=== PATIENT | female | born 1980 | race Caucasian/White ===

== ENCOUNTER 2016-03-04 12:05 | Emergency (ER) | payer BC ==
[2016-03-04 12:20] VITALS: BP 112/65
[2016-03-04] MEDS ORDERED: Ibuprofen TAB* 600 MG PO ONE (12:46)
--- NOTE | 2016-03-04 12:47 | UC ---
Lower Extremity/Ankle HPI - HPI Summary HPI Summary: twisted left ankle on ice this morning--lateral tenderness swelling and bruising - History of Current Complaint Chief Complaint: UCLowerExtremity Stated Complaint: ANKLE INJURY Time Seen by Provider: 03/04/16 12:42 Hx Obtained From: Patient Hx Last Menstrual Period: 02/15/16 ?: No Onset/Duration: Sudden Onset, Lasting Hours - 1.5 hours ago, Still Present Severity Initially: Moderate Severity Currently: Moderate Pain Intensity: 7 Pain Scale Used: 0-10 Numeric Aggravating Factor(s): Standing, Ambulation Alleviating Factor(s): Rest, Elevation Able to Bear Weight: Yes - Allergies/Home Medications Allergies/Adverse Reactions: Allergies Allergy/AdvReac Type Severity Reaction Status Date / Time No Known Allergies Allergy Verified 12/30/13 14:22 Home Medications: Home Medications Cholecalciferol [Vitamin D-3] 2,000 unit PO DAILY 03/04/16 [History Confirmed ] PMH/Surg Hx/FS Hx/Imm Hx Previously Healthy: Yes Endocrine History Of: Denies: Diabetes, Thyroid Disease Cardiovascular History Of: Denies: Cardiac Disorders, Hypertension Respiratory History Of: Denies: COPD, Asthma GI/ History Of: Denies: Ulcer - Surgical History Surgical History: Yes Surgery Procedure, Year, and Place: csection X2, BTL - Family History Known Family History: Positive: None Family History: no cardiovascular issues in family lineage - Social History Occupation: Employed Full-time, Employed Part-time Lives: With Family Alcohol Use: Weekly Substance Use Type: None Smoking Status (MU): Light Every Day Tobacco Smoker - Immunization History Most Recent Influenza Vaccination: declined Most Recent Tetanus Shot: 10/12/13 Most Recent Pneumonia Vaccination: none Review of Systems Constitutional: Negative Skin: Bruising - lateral left ankle Eyes: Negative ENT: Negative Respiratory: Negative Cardiovascular: Negative Gastrointestinal: Negative Genitourinary: Negative Motor: Decreased ROM - left ankle, Weakness - left foot Neurovascular: Negative Musculoskeletal: Arthralgia, Edema - lateral left ankle Neurological: Negative Psychological: Negative All Other Systems Reviewed And Are Negative: Yes Physical Exam Triage Information Reviewed: Yes Appearance: Well-Appearing, No Pain Distress, Well-Nourished Vital Signs: Initial Vital Signs Temp 98.7 F 03/04/16 12:16 Pulse 79 01/12/17 12:16 Resp 16 03/04/16 12:16 BP 112/65 03/04/16 12:16 Pulse Ox 98 03/04/16 12:16 Vital Signs Reviewed: Yes Eye Exam: Normal Eyes: Positive: Conjunctiva Clear ENT Exam: Normal ENT: Positive: Normal ENT inspection, Hearing grossly normal, Pharynx normal. Negative: Nasal congestion, Nasal drainage, Tonsillar swelling, Tonsillar exudate, Trismus, Muffled/hoarse voice Dental Exam: Normal Neck exam: Normal Neck: Positive: Supple, Nontender, No Lymphadenopathy Respiratory Exam: Normal Respiratory: Positive: Chest non-tender, Lungs clear, Normal breath sounds, No respiratory distress, No accessory muscle use Cardiovascular Exam: Normal Cardiovascular: Positive: RRR, No Murmur, Pulses Normal, Brisk Capillary Refill Musculoskeletal Exam: Other Musculoskeletal: Positive: Strength Limited @ - left ankle, ROM Limited @ - left ankle, Edema @ - lateral left ankle Neurological Exam: Normal Psychological Exam: Normal Skin Exam: Normal Diagnostics - Radiology No standard instances Xray Interpretation: Positive (See Comments) - non displased fracture of distal fibula Lower Extremity Course/Dx - Course Course Of Treatment: david, cam, crutches, rice, ibuprofen, follow with ortho re- check 4-5 days - Differential Dx/Diagnosis Differential Diagnosis/HQI/PQRI: Cellulitis, Fracture (Closed), Fracture (Open) , Sprain, Strain Provider Diagnoses: non displaced fracture left fibula Discharge - Discharge Plan Condition: Stable Disposition: HOME Prescriptions: Ibuprofen TAB* [Motrin TAB* 600 MG] 600 mg PO Q6H PRN #30 tab PRN Reason: ankle pain Patient Education Materials: Ankle Fracture (ED), Crutch Instructions (ED), RICE Therapy (ED) Forms: *Work Release Referrals: Garry Mary MD [Medical Doctor] - 4 Days No Primary Care Phys,NOPCP [Primary Care Provider] -
--- NOTE | 2016-03-04 13:28 | RAD ---
Indication: Left ankle injury 3 views of the left ankle demonstrate soft tissue swelling laterally. There is suggestion of a nondisplaced fracture of the distal fibula. No significant displacement is noted. IMPRESSION: Likely nondisplaced fracture of the distal fibula.
== END 2016-03-04 14:15 | disposition home or self-care (01) ==
LOC: UCEAST 12:05
DX: S99.912A Unspecified injury of left ankle, initial encounter (principal); X50.1XXA Overexertion from prolonged static or awkward postures, initial encounter; Y93.9 Activity, unspecified; Y92.9 Unspecified place or not applicable; F17.210 Nicotine dependence, cigarettes, uncomplicated
CPT/HCPCS: 99213; A9270-GY; G0463

== ENCOUNTER 2016-05-21 17:32 | Emergency (ER) | payer BC ==
[2016-05-21] MEDS ORDERED: NS 0.9% 1000 ML* 2,000 ML IV ONE (17:52)
[2016-05-21] MEDS ORDERED: LORazepam INJ* 2 MG/ML 1 ML VIAL IV PUSH ONE (17:54)
--- NOTE | 2016-05-21 17:59 | ED ---
Psychiatric Complaint - HPI Summary HPI Summary: Patient presents to ED with alcohol intoxication and requesting a detox. Patient began drinking last evening and this morning starting at 9am until now. She states she had 6 beers and 2 glasses of wine. She normally drinks a few times a week and drink of choice is wine. She denies drinking previously in the week. She also would like to speak with someone for an MHE. She denies thoughts of hurting herself or others. Denies self-injurious behaviors. Denies drug use. Patient is a smoker. She has never been seen for something like this before and does not with to seek rehab help. She is tearful on examination. Denies injuries, falls, LOC. She takes Lexapro at night, but no other medications. No significant health history. - History Of Current Complaint Chief Complaint: EDDetoxRequest Time Seen by Provider: 05/21/16 17:45 Hx Obtained From: Patient Hx Last Menstrual Period: 02/15/16 Onset/Duration: Gradual Onset Timing: Constant Severity Initially: Moderate Severity Currently: Moderate Character: Depressed, Fearful Aggravating Factor(s): Recent Stress, Alcohol Use Alleviating Factor(s): Medication Associated Signs And Symptoms: Positive: Social Isolation - Risk Factor(s) Completed Suicide Risk Factors: White [place] - Allergies/Home Medications Allergies/Adverse Reactions: Allergies Allergy/AdvReac Type Severity Reaction Status Date / Time No Known Allergies Allergy Verified 12/30/13 14:22 PMH/Surg Hx/FS Hx/Imm Hx Previously Healthy: Yes Endocrine/Hematology History: Denies: Hx Diabetes, Hx Thyroid Disease Cardiovascular History: Denies: Hx Hypertension Respiratory History: Denies: Hx Asthma, Hx Chronic Obstructive Pulmonary Disease (COPD) GI History: Denies: Hx Ulcer - Surgical History Surgery Procedure, Year, and Place: csection X2, BTL Infectious Disease History: Denies: Hx Hepatitis, Hx Human Immunodeficiency Virus (HIV), Traveled Outside the [place] in Last 30 Days - Family History Known Family History: Positive: None Family History: no cardiovascular issues in family lineage - Social History Occupation: Employed Full-time Lives: With Family Alcohol Use: Weekly Hx Substance Use: No Substance Use Type: Reports: None Hx Tobacco Use: Yes Smoking Status (MU): Light Every Day Tobacco Smoker Review of Systems Constitutional: Negative ENT: Negative Cardiovascular: Negative Respiratory: Negative Gastrointestinal: Negative Positive: no symptoms reported, see HPI Musculoskeletal: Negative Neurological: Negative Positive: Anxious, Depressed All Other Systems Reviewed And Are Negative: Yes Physical Exam Triage Information Reviewed: Yes Vital Signs On Initial Exam: Initial Vitals Temp Pulse Resp BP Pulse Ox 97.4 F 94 16 123/80 99 05/21/16 17:34 05/21/16 17:34 05/21/16 17:34 05/21/16 17:34 05/21/16 17:34 Vital Signs Reviewed: Yes Appearance: Positive: No Pain Distress, Ill-Appearing Skin: Positive: Warm, Skin Color Reflects Adequate Perfusion Eyes: Positive: EOMI, Conjunctiva Inflammed Neck: Positive: Supple, No Lymphadenopathy Respiratory/Lung Sounds: Positive: Clear to Auscultation, Breath Sounds Present Cardiovascular: Positive: Normal Bowel Sounds: Positive: Present Musculoskeletal: Positive: Normal, Strength/ROM Intact Neurological: Positive: Normal, Sensory/Motor Intact, Alert, Oriented to Person Place, Time, Speech Normal Psychiatric: Positive: Normal - Lenin Coma Scale Best Eye Response: 4 - Spontaneous Best Motor Response: 6 - Obeys Commands Best Verbal Response: 5 - Oriented Diagnostics - Vital Signs Vital Signs Temp Pulse Resp BP Pulse Ox 05/21/16 17:34 97.4 F 94 16 123/80 99 - Laboratory Result Diagrams: 05/21/16 18:00 05/21/16 18:00 Lab Statement: Any lab studies that have been ordered have been reviewed, and results considered in the medical decision making process. Course/Dx - Course Course Of Treatment: Patient requesting to stay a few nights. Patient wishes to have a MHE. - Differential Dx/Clinical Impression Differential Diagnosis/HQI/PQRI: Positive: Alcohol Intoxication, Drug Overdose/ Intentional, Other - alcohol abuse, depression Provider Diagnosis: Alcohol intoxication Discharge - Discharge Plan Condition: Guarded Disposition: HOME Referrals: Fidencio Monreal NP [Primary Care Provider] -
[2016-05-21 18:25] LABS: Hematocrit 44 % (35-47); Hemoglobin 14.7 g/dl (12.0-16.0); Mean Corpuscular HGB Conc 33 g/dl (31-36); Mean Corpuscular Hemoglobin 33 pg (27-31); Mean Corpuscular Volume 99 fL (80-97); Mean Platelet Volume 7 um3 (7.4-10.4); Red Blood Count 4.44 10^6/ul (4.0-5.4); Red Cell Distribution Width 13 % (10.5-15); White Blood Count 6.7 10^3/ul (3.5-10.8)
[2016-05-21 18:29] LABS: Add Diff/Slide Review? Slide Review Added; Comments Flag Yes
[2016-05-21 18:34] LABS: Urine Bacteria 1+ (Absent); Urine Bilirubin Negative (Negative); Urine Glucose Negative (Negative); Urine Nitrite Negative (Negative)
[2016-05-21 18:37] LABS: Benzodiazepine Urine Screen None Detected (None Detect)
[2016-05-21 18:46] LABS: ALT 18 U/L (7-52); AST 22 U/L (13-39); Alkaline Phosphatase 52 U/L (34-104); Anion Gap 9 mmol/L (2-11); BUN/Creatinine Ratio 13.6 (8-20); Blood Urea Nitrogen 9 mg/dL (6-24); CO2 Carbon Dioxide 24 mmol/L (22-32); Calcium 9.5 mg/dL (8.6-10.3); Chloride 104 mmol/L (101-111); EGFR African American 129.6 (>60); EGFR Non-African American 100.8 (>60); Globulin 3.1 g/dL (2-4); Glucose 92 mg/dL (70-100); Potassium 4.1 mmol/L (3.5-5.0); Sodium 137 mmol/L (133-145); Total Protein 8.1 g/dL (6.4-8.9)
[2016-05-21 18:58] LABS: Acetaminophen < 15 mcg/mL; Alcohol 352 mg/dL (<10); Salicylate < 2.50 mg/dL (<30)
[2016-05-21 19:08] LABS: TSH (Thyroid Stimulating Horm) 0.71 mcIU/mL (0.34-5.60)
[2016-05-22 05:49] VITALS: BP 108/63
== END 2016-05-22 05:45 | disposition home or self-care (01) ==
LOC: ED 17:32
DX: F10.129 Alcohol abuse with intoxication, unspecified (principal); F32.9 Major depressive disorder, single episode, unspecified; F17.210 Nicotine dependence, cigarettes, uncomplicated
CPT/HCPCS: 36415; 80053; 80307; 80320; 80329; 81003; 81015; 84443; 85025; 87086; 96374; 99283; G0480; J2060

== ENCOUNTER → 2016-08-05 18:09 | Emergency (ER) | payer BC ==
[2016-08-05 18:20] VITALS: BP 101/76
== END | disposition left against medical advice (07) ==
LOC: ED 18:09
DX: F10.129 Alcohol abuse with intoxication, unspecified (principal)

== ENCOUNTER 2016-11-30 20:48 | Emergency (ER) | payer BC ==
[2016-11-30] MEDS ORDERED: Thiamine IV 100 MG, Folic Acid IV* 1 MG, Multiple Vitamin IV ADULT* 10 ML in NS 0.9% 10... IV ONE (21:59)
[2016-11-30 22:05] LABS: Urine Bilirubin Negative (Negative); Urine Glucose Negative (Negative); Urine Nitrite Negative (Negative)
[2016-11-30 22:22] LABS: Benzodiazepine Urine Screen None Detected (None Detect)
[2016-11-30] MEDS ORDERED: LORazepam INJ* 2 MG/ML 1 ML VIAL IV ONE (22:28)
[2016-11-30 23:04] LABS: Comments Flag Yes; Hematocrit 39 % (35-47); Hemoglobin 13.2 g/dl (12.0-16.0); Mean Corpuscular HGB Conc 34 g/dl (31-36); Mean Corpuscular Hemoglobin 32 pg (27-31); Mean Corpuscular Volume 94 fL (80-97); Mean Platelet Volume 8 um3 (7.4-10.4); Red Blood Count 4.14 10^6/ul (4.0-5.4); Red Cell Distribution Width 15 % (10.5-15); White Blood Count 8.1 10^3/ul (3.5-10.8)
[2016-11-30 23:05] LABS: Add Diff/Slide Review? Slide Review Added
[2016-11-30 23:15] LABS: Acetaminophen < 15 mcg/mL; Salicylate < 2.50 mg/dL (<30)
[2016-11-30 23:17] LABS: ALT 15 U/L (7-52); AST 17 U/L (13-39); Albumin 4.7 g/dL (3.2-5.2); Alkaline Phosphatase 37 U/L (34-104); Anion Gap 9 mmol/L (2-11); BUN/Creatinine Ratio 10.4 (8-20); Blood Urea Nitrogen 7 mg/dL (6-24); CO2 Carbon Dioxide 24 mmol/L (22-32); Calcium 9.1 mg/dL (8.6-10.3); Chloride 106 mmol/L (101-111); EGFR African American 127.4 (>60); Globulin 2.9 g/dL (2-4); Glucose 101 mg/dL (70-100); Potassium 3.8 mmol/L (3.5-5.0); Sodium 139 mmol/L (133-145); Total Protein 7.6 g/dL (6.4-8.9)
[2016-11-30 23:32] LABS: Neutrophil % 28 % (38-83); Reactive Lymph % 14 % (0-6)
[2016-11-30 23:33] LABS: RBC Morphology Normal (Normal)
[2016-11-30 23:54] LABS: Alcohol 425 mg/dL (<10)
--- NOTE | 2016-12-01 05:45 | ED ---
Otto Andrews Benjamin, scribed for Dwayne Waldron MD on 11/30/16 at 2144 . Psychiatric Complaint - HPI Summary HPI Summary: 36yo female presents to ED voluntarily looking for MHE and detox. Pt needs medical clearance to start detox. Pt is an alcoholic. Denies no other drug use. Also denies SI. Pt states she feels unsafe to leave the facility. Pt request MHE. Pt denies any Sz for her alcohol withdrawal. Last intake was around today around 1200. - History Of Current Complaint Chief Complaint: EDMentalHealth Time Seen by Provider: 11/30/16 21:28 Hx Obtained From: Patient Hx Last Menstrual Period: 02/15/16 ?: No Severity Initially: Mild Severity Currently: Mild Character: Frustrated Aggravating Factor(s): Alcohol Use Alleviating Factor(s): Nothing Associated Signs And Symptoms: Positive: Negative Related History: Positive For: Drug Abuse Counseling - for alcohol Has Suicidal: Denies: Thoughts, With A Plan Has Homicidal: Denies: Thoughts, With A Plan - Allergies/Home Medications Allergies/Adverse Reactions: Allergies Allergy/AdvReac Type Severity Reaction Status Date / Time No Known Allergies Allergy Verified 11/30/16 21:09 PMH/Surg Hx/FS Hx/Imm Hx Endocrine/Hematology History: Denies: Hx Diabetes, Hx Thyroid Disease Cardiovascular History: Denies: Hx Hypertension Respiratory History: Denies: Hx Asthma, Hx Chronic Obstructive Pulmonary Disease (COPD) GI History: Denies: Hx Ulcer Psychiatric History: Denies: Hx Eating Disorder, Hx of Violent Episodes Against Others - Surgical History Surgery Procedure, Year, and Place: csection X2, BTL Infectious Disease History: No Infectious Disease History: Denies: Hx Hepatitis, Hx Human Immunodeficiency Virus (HIV), Traveled Outside the [place] in Last 30 Days - Family History Known Family History: Positive: None Family History: no cardiovascular issues in family lineage - Social History Alcohol Use: Weekly Hx Substance Use: No Substance Use Type: Reports: None Hx Tobacco Use: Yes Smoking Status (MU): Light Every Day Tobacco Smoker Review of Systems Constitutional: Negative Eyes: Negative ENT: Negative Cardiovascular: Negative Respiratory: Negative Gastrointestinal: Negative Genitourinary: Negative Musculoskeletal: Negative Skin: Negative Neurological: Other - alcohol intoxicated Positive: Depressed, Other - frustrated All Other Systems Reviewed And Are Negative: Yes Physical Exam Triage Information Reviewed: Yes Vital Signs On Initial Exam: Initial Vitals Temp Pulse Resp BP Pulse Ox 98.5 F 90 16 112/73 97 11/30/16 21:00 11/30/16 21:00 11/30/16 21:00 11/30/16 21:00 11/30/16 21:00 Vital Signs Reviewed: Yes Appearance: Positive: Well-Appearing, No Pain Distress, Well-Nourished Skin: Positive: Warm, Skin Color Reflects Adequate Perfusion, Dry Head/Face: Positive: Normal Head/Face Inspection Eyes: Positive: EOMI, FLAQUITA ENT: Positive: Normal ENT inspection Neck: Positive: Supple, Nontender Respiratory/Lung Sounds: Positive: Clear to Auscultation, Breath Sounds Present Cardiovascular: Positive: RRR, Pulses are Symmetrical in both Upper and Lower Extremities Abdomen Description: Positive: Nontender, Soft Bowel Sounds: Positive: Present Musculoskeletal: Positive: Strength/ROM Intact Neurological: Positive: Sensory/Motor Intact, Alert, Oriented to Person Place, Time Psychiatric: Positive: Anxious, Other - tearful, hysterical Diagnostics - Vital Signs Vital Signs Temp Pulse Resp BP Pulse Ox 11/30/16 21:00 98.5 F 90 16 112/73 97 - Laboratory Lab Results: Lab Results 11/30/16 11/30/16 11/30/16 Range/Units 21:35 21:46 21:46 WBC 8.1 (3.5-10.8) 10^3/ul RBC 4.14 (4.0-5.4) 10^6/ul Hgb 13.2 (12.0-16.0) g/dl Hct 39 (35-47) % MCV 94 (80-97) fL MCH 32 H (27-31) pg MCHC 34 (31-36) g/dl RDW 15 (10.5-15) % Plt Count 305 (150-450) 10^3/ul MPV 8 (7.4-10.4) um3 Neut % (Auto) 32.7 L (38-83) % Lymph % (Auto) 60.8 H (25-47) % [place] % (Auto) 4.8 (1-9) % Eos % (Auto) 0.8 (0-6) % Baso % (Auto) 0.9 (0-2) % Absolute Neuts (auto) 2.6 (1.5-7.7) 10^3/ul Absolute Lymphs (auto) 4.9 H (1.0-4.8) 10^3/ul Absolute Monos (auto) 0.4 (0-0.8) 10^3/ul Absolute Eos (auto) 0.1 (0-0.6) 10^3/ul Absolute Basos (auto) 0.1 (0-0.2) 10^3/ul Absolute Nucleated RBC 0.01 10^3/ul Neutrophils % 28 L (38-83) % Lymphocytes % 56 H (25-47) % Reactive Lymphs % 14 H (0-6) % Monocytes % 2 (0-13) % Nucleated RBC % 0.1 Normal RBC Morphology Normal (Normal) Sodium (133-145) mmol/L Potassium (3.5-5.0) mmol/L Chloride (101-111) mmol/L Carbon Dioxide (22-32) mmol/L Anion Gap (2-11) mmol/L BUN (6-24) mg/dL Creatinine (0.51-0.95) mg/dL Est GFR ( Amer) (>60) Est GFR (Non-Af Amer) (>60) BUN/Creatinine Ratio (8-20) Glucose (70-100) mg/dL Calcium (8.6-10.3) mg/dL Magnesium (1.9-2.7) mg/dL Total Bilirubin (0.2-1.0) mg/dL AST (13-39) U/L ALT (7-52) U/L Alkaline Phosphatase (34-104) U/L Total Protein (6.4-8.9) g/dL Albumin (3.2-5.2) g/dL Globulin (2-4) g/dL Albumin/Globulin Ratio (1-3) TSH (0.34-5.60) mcIU/mL Beta HCG, Quant mIU/mL Urine Color Straw Urine Appearance Clear Urine pH 5.0 (5-9) Ur Specific Bronson 1.004 L (1.010-1.030) Urine Protein Negative (Negative) Urine Ketones Negative (Negative) Urine Blood Negative (Negative) Urine Nitrate Negative (Negative) Urine Bilirubin Negative (Negative) Urine Urobilinogen Negative (Negative) Ur Leukocyte Esterase Negative (Negative) Urine Glucose Negative (Negative) Salicylates (<30) mg/dL Urine Opiates Screen None detected (None Detect) Acetaminophen mcg/mL Ur Barbiturates Screen None detected (None Detect) Ur Phencyclidine Scrn None detected (None Detect) Ur Amphetamines Screen None detected (None Detect) U Benzodiazepines Scrn None detected (None Detect) Urine Cocaine Screen None detected (None Detect) U Cannabinoids Screen None detected (None Detect) Serum Alcohol (<10) mg/dL 11/30/16 Range/Units 22:03 WBC (3.5-10.8) 10^3/ul RBC (4.0-5.4) 10^6/ul Hgb (12.0-16.0) g/dl Hct (35-47) % MCV (80-97) fL MCH (27-31) pg MCHC (31-36) g/dl RDW (10.5-15) % Plt Count (150-450) 10^3/ul MPV (7.4-10.4) um3 Neut % (Auto) (38-83) % Lymph % (Auto) (25-47) % Lancaster % (Auto) (1-9) % Eos % (Auto) (0-6) % Baso % (Auto) (0-2) % Absolute Neuts (auto) (1.5-7.7) 10^3/ul Absolute Lymphs (auto) (1.0-4.8) 10^3/ul Absolute Monos (auto) (0-0.8) 10^3/ul Absolute Eos (auto) (0-0.6) 10^3/ul Absolute Basos (auto) (0-0.2) 10^3/ul Absolute Nucleated RBC 10^3/ul Neutrophils % (38-83) % Lymphocytes % (25-47) % Reactive Lymphs % (0-6) % Monocytes % (0-13) % Nucleated RBC % Normal RBC Morphology (Normal) Sodium 139 (133-145) mmol/L Potassium 3.8 (3.5-5.0) mmol/L Chloride 106 (101-111) mmol/L Carbon Dioxide 24 (22-32) mmol/L Anion Gap 9 (2-11) mmol/L BUN 7 (6-24) mg/dL Creatinine 0.67 (0.51-0.95) mg/dL Est GFR ( Amer) 127.4 (>60) Est GFR (Non-Af Amer) 99.0 (>60) BUN/Creatinine Ratio 10.4 (8-20) Glucose 101 H (70-100) mg/dL Calcium 9.1 (8.6-10.3) mg/dL Magnesium 2.0 (1.9-2.7) mg/dL Total Bilirubin 0.30 (0.2-1.0) mg/dL AST 17 (13-39) U/L ALT 15 (7-52) U/L Alkaline Phosphatase 37 (34-104) U/L Total Protein 7.6 (6.4-8.9) g/dL Albumin 4.7 (3.2-5.2) g/dL Globulin 2.9 (2-4) g/dL Albumin/Globulin Ratio 1.6 (1-3) TSH 1.00 (0.34-5.60) mcIU/mL Beta HCG, Quant < 0.60 mIU/mL Urine Color Urine Appearance Urine pH (5-9) Ur Specific Bronson (1.010-1.030) Urine Protein (Negative) Urine Ketones (Negative) Urine Blood (Negative) Urine Nitrate (Negative) Urine Bilirubin (Negative) Urine Urobilinogen (Negative) Ur Leukocyte Esterase (Negative) Urine Glucose (Negative) Salicylates < 2.50 (<30) mg/dL Urine Opiates Screen (None Detect) Acetaminophen < 15 mcg/mL Ur Barbiturates Screen (None Detect) Ur Phencyclidine Scrn (None Detect) Ur Amphetamines Screen (None Detect) U Benzodiazepines Scrn (None Detect) Urine Cocaine Screen (None Detect) U Cannabinoids Screen (None Detect) Serum Alcohol 425 H* (<10) mg/dL Result Diagrams: 11/30/16 21:35 11/30/16 22:03 Lab Statement: Any lab studies that have been ordered have been reviewed, and results considered in the medical decision making process. Course/Dx - Course Course Of Treatment: Reviewed pts medication and allergy lists. Blood pressure noted. Pt will be medically cleared after serum alcohol level drops to a safe level. - Differential Dx/Clinical Impression Provider Diagnosis: Alcohol intoxication Discharge - Discharge Plan Condition: Stable Disposition: OTHER Discharge Disposition Comment: . Referrals: Fidencio Monreal, [facility] [Primary Care Provider] - The documentation as recorded by the Otto kirkpatrick Benjamin accurately reflects the service I personally performed and the decisions made by me, Dwayne Waldron MD.
[2016-12-01 12:50] VITALS: BP 100/54
--- NOTE | 2016-12-01 19:04 | ED ---
Suman Andrews Angela, scribed for Ousmane Gee MD on 12/01/16 at 1220 . Progress - Progress Note Progress Note: This pt is a 36 y/o female who presented last night to [facility] voluntarily looking for MHE and detox." Her last alcohol intake was around 1200 yesterday. This pt was signed out from Dr. Waldron, pending disposition, awaiting alcohol metabolism. Pt will be discharged to home in stable condition with a diagnosis of alcohol intoxication. Course/Dx - Course Course Of Treatment: This pt is a 36 y/o female who presented last night to [facility] voluntarily looking for MHE and detox." Her last alcohol intake was around 1200 yesterday. This pt was signed out from Dr. Waldron to follow up with alcohol level. Repeat alcohol level was 181. The pt was observed in the ED and now is alert and oriented x3. The pt is eating and drinking without any nausea and vomiting. Therefore, she will be discharged home with follow up with PCP. Pt was given information for outpatient detox. - Diagnoses Provider Diagnoses: Alcohol intoxication The documentation as recorded by the Suman kirkpatrick Angela accurately reflects the service I personally performed and the decisions made by , Ousmane Gee MD.
== END 2016-12-01 12:48 | disposition home or self-care (01) ==
LOC: ED 20:48
DX: F10.129 Alcohol abuse with intoxication, unspecified (principal); F32.9 Major depressive disorder, single episode, unspecified; Y90.8 Blood alcohol level of 240 mg/100 ml or more; F17.210 Nicotine dependence, cigarettes, uncomplicated
CPT/HCPCS: 36415; 80053; 80307; 80320; 80329; 81003; 83735; 84443; 84702; 85025; 93005; 96374; 99284; G0480; J2060; J3411

== ENCOUNTER 2017-08-13 05:36 | Emergency (ER) | payer BC ==
[2017-08-13 07:26] LABS: ABS Basophils 0.1 10^3/ul (0-0.2); ABS Eosinophils 0.1 10^3/ul (0-0.6); ABS Lymphocytes 2.9 10^3/ul (1.0-4.8); ABS Monocytes 0.3 10^3/ul (0-0.8); ABS Nucleated RBC 0 10^3/ul; Eosinophil % 1.2 % (0-6); Hematocrit 40 % (35-47); Hemoglobin 13.7 g/dl (12.0-16.0); Mean Corpuscular HGB Conc 35 g/dl (31-36); Mean Corpuscular Hemoglobin 33 pg (27-31); Mean Corpuscular Volume 96 fL (80-97); Mean Platelet Volume 7.1 um3 (7.4-10.4); Nucleated Red Blood Cells % 0; Platelet Count 285 10^3/ul (150-450); Red Blood Count 4.12 10^6/ul (4.00-5.40); Red Cell Distribution Width 15 % (10.5-15); White Blood Count 7.3 10^3/ul (3.5-10.8)
[2017-08-13 07:47] LABS: EGFR Non-African American 83.9 (>60)
--- NOTE | 2017-08-13 17:51 | ED ---
Cyndie Andrews Jade, scribed for Dwayne Waldron MD on 08/13/17 at 0808 . Psychiatric Complaint - HPI Summary HPI Summary: Pt is a 37 y/o female who presents to the ED c/o depression. She states she has been having recent family problems that have been making her feel depressed and hopeless. Pt is currently intoxicated (alcohol) and wants a MHE. Pt has not been eating or sleeping well. She states she sometimes has suicidal thoughts, but no plan. Pts sister states that the pt is an alcohol, and recently has been drinking more. PMHx anxiety and alcohol abuse. - History Of Current Complaint Chief Complaint: EDMentalHealth Time Seen by Provider: 08/13/17 05:56 Hx Obtained From: Patient Hx Last Menstrual Period: 02/15/16 Onset/Duration: Gradual Onset, Still Present Timing: Constant Character: Depressed Aggravating Factor(s): Recent Stress - Family problems, Alcohol Use Alleviating Factor(s): Nothing Associated Signs And Symptoms: Positive: Sleep Disturbance, Appetite Change Related History: Positive For: Prior Psychiatric Issues Has Suicidal: Reports: Thoughts. Denies: With A Plan, Demonstrates Gesture Has Homicidal: Denies: Thoughts Ingestion History: Type/Name Of Drug - Alcohol - Allergies/Home Medications Allergies/Adverse Reactions: Allergies Allergy/AdvReac Type Severity Reaction Status Date / Time No Known Allergies Allergy Verified 11/30/16 21:09 PMH/Surg Hx/FS Hx/Imm Hx Endocrine/Hematology History: Denies: Hx Diabetes, Hx Thyroid Disease Cardiovascular History: Denies: Hx Hypertension Respiratory History: Denies: Hx Asthma, Hx Chronic Obstructive Pulmonary Disease (COPD) GI History: Denies: Hx Ulcer Psychiatric History: Reports: Hx Anxiety, Hx Substance Abuse - Alcohol Denies: Hx Eating Disorder, Hx of Violent Episodes Against Others - Surgical History Surgery Procedure, Year, and Place: csection X2, BTL Infectious Disease History: No Infectious Disease History: Denies: Hx Hepatitis, Hx Human Immunodeficiency Virus (HIV), Traveled Outside the [place] in Last 30 Days - Family History Known Family History: Negative: Cardiac Disease Family History: no cardiovascular issues in family lineage - Social History Alcohol Use: Weekly Hx Substance Use: No Substance Use Type: Reports: None Hx Tobacco Use: Yes Smoking Status (MU): Light Every Day Tobacco Smoker Review of Systems Negative: Fever Positive: Depressed All Other Systems Reviewed And Are Negative: Yes Physical Exam - Summary Physical Exam Summary: General: well-appearing, no pain distress Skin: warm, color reflects adequate perfusion, dry Head: normal Eyes: EOMI, FLAQUITA ENT: normal Neck: supple, nontender Respiratory: CTA, breath sounds present Cardiovascular: RRR Abdomen: soft, nontender Bowel: present Musculoskeletal: normal, strength/ROM intact Neurological: sensory/motor intact, A&O x3 Psychological: stuporous, but arousable to voice Triage Information Reviewed: Yes Vital Signs On Initial Exam: Initial Vitals Temp Pulse Resp BP Pulse Ox 99.8 F 87 17 109/80 98 08/13/17 05:59 08/13/17 05:59 08/13/17 05:59 08/13/17 05:59 08/13/17 05:59 Vital Signs Reviewed: Yes Diagnostics - Vital Signs Vital Signs Temp Pulse Resp BP Pulse Ox 08/13/17 05:59 99.8 F 87 17 109/80 98 - Laboratory Lab Results: Lab Results 08/13/17 08/13/17 08/13/17 Range/Units 07:16 07:16 07:17 WBC 7.3 (3.5-10.8) 10^3/ul RBC 4.12 (4.00-5.40) 10^6/ul Hgb 13.7 (12.0-16.0) g/dl Hct 40 (35-47) % MCV 96 (80-97) fL MCH 33 H (27-31) pg MCHC 35 (31-36) g/dl RDW 15 (10.5-15) % Plt Count 285 (150-450) 10^3/ul MPV 7.1 L (7.4-10.4) um3 Neut % (Auto) 54.4 (38-83) % Lymph % (Auto) 39.0 (25-47) % Grady % (Auto) 4.6 (0-7) % Eos % (Auto) 1.2 (0-6) % Baso % (Auto) 0.8 (0-2) % Absolute Neuts (auto) 4.0 (1.5-7.7) 10^3/ul Absolute Lymphs (auto) 2.9 (1.0-4.8) 10^3/ul Absolute Monos (auto) 0.3 (0-0.8) 10^3/ul Absolute Eos (auto) 0.1 (0-0.6) 10^3/ul Absolute Basos (auto) 0.1 (0-0.2) 10^3/ul Absolute Nucleated RBC 0 10^3/ul Nucleated RBC % 0 Sodium 144 (135-145) mmol/L Potassium 3.4 L (3.5-5.0) mmol/L Chloride 110 (101-111) mmol/L Carbon Dioxide 25 (22-32) mmol/L Anion Gap 9 (2-11) mmol/L BUN 10 (6-24) mg/dL Creatinine 0.77 (0.51-0.95) mg/dL Est GFR ( Amer) 101.5 (>60) Est GFR (Non-Af Amer) 83.9 (>60) BUN/Creatinine Ratio 13.0 (8-20) Glucose 107 H (70-100) mg/dL Calcium 8.9 (8.6-10.3) mg/dL Total Bilirubin 0.30 (0.2-1.0) mg/dL AST 18 (13-39) U/L ALT 13 (7-52) U/L Alkaline Phosphatase 50 (34-104) U/L Total Protein 7.0 (6.4-8.9) g/dL Albumin 4.5 (3.2-5.2) g/dL Globulin 2.5 (2-4) g/dL Albumin/Globulin Ratio 1.8 (1-3) TSH Pending Beta HCG, Quant < 0.60 mIU/mL Salicylates Pending Urine Opiates Screen None detected (None Detect) Acetaminophen Pending Ur Barbiturates Screen None detected (None Detect) Ur Phencyclidine Scrn None detected (None Detect) Ur Amphetamines Screen None detected (None Detect) U Benzodiazepines Scrn None detected (None Detect) Urine Cocaine Screen None detected (None Detect) U Cannabinoids Screen None detected (None Detect) Serum Alcohol Pending Result Diagrams: 08/13/17 07:16 08/13/17 07:16 Lab Statement: Any lab studies that have been ordered have been reviewed, and results considered in the medical decision making process. Course/Dx - Course Course Of Treatment: DISCHARGE HOME STABLE AFTER MHE - Differential Dx/Clinical Impression Provider Diagnosis: Mental health problem, Acute alcohol intoxication Discharge - Sign-Out/Discharge Documenting (check all that apply): Discharge/Admit/Transfer - Discharge - Discharge Plan Condition: Stable Disposition: HOME Patient Education Materials: Depression (ED), Depression (DC), Alcohol Intoxication (ED), Abuse of Alcohol (ED), Abuse of Alcohol (DC) Referrals: Fidencio Monreal NP [Primary Care Provider] - - Billing Disposition and Condition Condition: STABLE Disposition: Home The documentation as recorded by the Cyndie kirkpatrick Jade accurately reflects the service I personally performed and the decisions made by , Dwayne Waldron MD.
[2017-08-13] MEDS ORDERED: Acetaminophen TAB* 325 MG PO ONE (17:58)
[2017-08-13 18:00] VITALS: BP 112/82
== END 2017-08-13 17:56 | disposition home or self-care (01) ==
LOC: ED 05:36
DX: F32.9 Major depressive disorder, single episode, unspecified (principal); F10.129 Alcohol abuse with intoxication, unspecified; F17.200 Nicotine dependence, unspecified, uncomplicated
CPT/HCPCS: 36415; 80053; 80307; 80320; 80329; 84443; 84702; 85025; 99284; A9270-GY; G0480

== ENCOUNTER 2017-10-19 12:13 | Emergency (ER) | payer BC ==
--- OUTSIDE RECORDS SUMMARY | 2017-10-19 12:29 | XMS REPORT ---
:1980 External Reference #:[id number] Author Organization [facility] Address [address] [place] [address] [place] [address] Phone [phone] Care Team Providers Name Role Phone Yulissa Weber MD Primary Care Physician Unavailable Payers Type Date Identification Numbers Payment Provider Subscriber Commercial Policy Number: [id number] [employer] Conrad Bonner PayID: [id number] [address] [address] [place] [address] Problems Date Description Provider Status Onset: 02/17/2016 Anxiety state Fidencio Monreal NP Active Onset: 02/29/2016 Impaired fasting glycaemia Fidencio Monreal NP Active Onset: 08/06/2016 Alcohol abuse Fidencio Monreal NP Active Family History Date Family Member(s) Problem(s) Comments General Lupus General Cancer Social History Type Date Description Comments Marital Status Lives 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 ETOH Use Denies alcohol use Former heavy drinker. [place] counseling. Trial of Naltrexone 08/07. Smoking Patient is a current smoker, 10 or fewer cigarettes a smokes every day day Recreational Drug Use Denies Drug Use Daily Caffeine Consumes on average 2 cups of regular coffee per day Exercise Type/Frequency Walks 4 times a week 6 miles Allergies, Adverse Reactions, Alerts Date Description Reaction Status Severity Comments 02/11/2016 NKDA active Medications Medication Date Status Form Strength Qnty SIG Indications Ordering Provider Buspirone HCL 10/17 Active Tablets 5mg 60tab 1 by mouth Fidencio s twice a day BRI Monreal Naltrexone HCL 10/17 Active Tablets 50mg 30tab 1 by mouth Fidencio s AT Bedtime BRI Monreal Trazodone HCL 10/17 Active Tablets 100mg 30tab take 1 Fidencio s tablet by BRI Monreal mouth at bedtime Fluticasone 10/17 Hx Suspension 50mcg/Act 16uni 2 sprays J06.9 Fidencio ts each nostril BRI Monreal - qd. 10/21 Escitalopram 07/30 Active Tablets 20mg 30tab take 1 Fidencio Oxalate s tablet by BRI Monreal mouth every day Folic Acid Active Tablets 1mg 1 by mouth Unknown /0000 every day B-12 ER Active Tablets 1000mcg 1 by mouth Unknown /0000 Dispers every day Metamucil Active Powder 58.6% 1 tbs by Unknown Smooth Texture /0000 mouth once a day Multi For Her Active Tablets once a day Unknown /0000 Thiamine HCL Active Tablets 100mg 1 by mouth Unknown /0000 every day Vistaril Active Capsules 50mg take one Unknown /0000 capsule by mouth AT Bedtime If Needed For Sleep Augmentin 07/25 Hx Tablets 875-125mg 20tab 1 tablet by Majo01.90 s mouth q12 BRI Monreal - hours for 10 Benzonatate 07/25 Hx Capsules 100mg 30cap take one or J01.90 s two capsules BRI Monreal - every 8 10/16 hours needed for cough. Augmentin 03/16 Hx Tablets 875-125mg 14tab one by mouth J01.90 Meghan /2018 s twice a day Braun, - [employer] 07/25 Guaifenesin ac 03/16 Hx Syrup 100-10mg/ 180ml 5-10 J01.90 Meghan /2018 5ML milliliters Braun, - by mouth [employer] 07/25 every hours as needed cough, use at night Antabuse 11/09 Hx Tablets 500mg 30tab one tablet F10.20 Fidencio s once daily BRI Monreal - 03/16 Naltrexone HCL 08/06 Hx Tablets 50mg 30tab One tablet F10.20 Fidencio s once daily BRI Monreal - 10/26 Escitalopram 06/17 Hx Tablets 20mg 30tab 1 by mouth F41.9 Fidencio Oxalate s every day Jocelin, [employer] - 07/25 Naproxen 03/08 Hx Tablets 500mg 90tab 1 po bid prn S82.65xA Taye s pain F MD German Escitalopram 02/10 Hx Tablets 10mg 60tab 1 1/ F41.9 Fidencio Oxalate s tablets Jocelin, [employer] - daily. June 24 increase 2 tablets after one week Hydroxyzine 02/10 Hx Capsules 25mg 60cap 1-2 caps by F41.9 Fidencio Pamoate s mouth four Jocelin, [employer] times a day as needed for anxiety Metronidazole Hx Gel 1% apply to Unknown /0000 affected - area twice 08/06 Vitamin D High Hx Capsules 1000Unit 2 by mouth Unknown Potency /0000 every day Melatonin Hx Capsules 3mg 2-3 tab by Unknown /0000 mouth every - night at 10/16 bed Lexapro Hx Tablets 20mg 1 by mouth Unknown /0000 every day - 10/17 Nicotine Hx Patches 21mg/24HR 1 topical Unknown Transdermal /0000 24HR every day System Step 1 - for 6 wks 10/17 Immunizations CPT Code Status Date Vaccine Reaction Lot # [id number] Given 03/10/2016 Influenza Virus Vaccine, no immedite reactin [id number] Quadrivalent, Split Virus, noted ... hh Im Use Vital Signs Date Vital Result Comment 10/17/2017 Height 62.5 inches 5'2.50" Weight 119.00 lb Heart Rate 87 /min BP Systolic Sitting 105 mmHg BP Diastolic Sitting 80 mmHg Body Temperature 98.3 F O2 % BldC Oximetry 97 % BMI (Body Mass Index) 21.4 kg/m2 07/25/2017 Height 62.5 inches 5'2.50" Weight 117.50 lb Heart Rate 70 /min BP Systolic 109 mmHg BP Diastolic 67 mmHg Body Temperature 96.7 F O2 % BldC Oximetry 98 % BMI (Body Mass Index) 21.1 kg/m2 03/16/2017 Weight 120.50 lb Heart Rate 69 /min BP Systolic Sitting 118 mmHg BP Diastolic Sitting 68 mmHg Body Temperature 96.1 F O2 % BldC Oximetry 97 % 11/15/2016 Weight 113.75 lb Heart Rate 71 /min BP Systolic 110 mmHg BP Diastolic 60 mmHg Body Temperature 97.8 F O2 % BldC Oximetry 98 % 10/27/2016 Height 62.5 inches 5'2.50" Weight 111.25 lb Heart Rate 68 /min BP Systolic Sitting 120 mmHg BP Diastolic Sitting 85 mmHg Body Temperature 98.1 F BMI (Body Mass Index) 20.0 kg/m2 08/06/2016 Weight 114.00 lb Heart Rate 68 /min BP Systolic Sitting 108 mmHg BP Diastolic Sitting 66 mmHg O2 % BldC Oximetry 98 % 06/29/2016 Height 62.5 inches 5'2.50" Weight 114.00 lb Heart Rate 62 /min BP Systolic 104 mmHg BP Diastolic 62 mmHg Respiratory Rate 16 /min BMI (Body Mass Index) 20.5 kg/m2 06/22/2016 Weight 112.25 lb Heart Rate 68 /min BP Systolic Sitting 100 mmHg BP Diastolic Sitting 70 mmHg Respiratory Rate 14 /min 05/24/2016 Height 63 inches 5'3" Weight 115.00 lb Heart Rate 67 /min Respiratory Rate 16 /min Body Temperature 97.6 F Pain Level 4 BMI (Body Mass Index) 20.4 kg/m2 03/23/2016 Height 63 inches 5'3" Weight 115.00 lb Pain Level 5 BMI (Body Mass Index) 20.4 kg/m2 03/10/2016 Weight 115.00 lb with shoes Heart Rate 88 /min BP Systolic Sitting 130 mmHg BP Diastolic Sitting 86 mmHg O2 % BldC Oximetry 99 % 03/08/2016 Height 62.5 inches 5'2.50" Weight 109.00 lb Heart Rate 80 /min BP Systolic 120 mmHg BP Diastolic 78 mmHg Pain Level 6 BMI (Body Mass Index) 19.6 kg/m2 02/11/2016 Height 62 inches 5'2" Weight 111.00 lb Heart Rate 94 /min BP Systolic 106 mmHg BP Diastolic 70 mmHg Body Temperature 98.5 F O2 % BldC Oximetry 99 % BMI (Body Mass Index) 20.3 kg/m2 Results Test Date Test Result H/L Range Note CBC Auto Diff 08/13/2017 White Blood Count 7.3 10^3/uL 3.5-10.8 Red Blood Count 4.12 10^6/uL 4.00-5.40 Hemoglobin 13.7 g/dL 12.0-16.0 Hematocrit 40 % 35-47 Mean Corpuscular Volume 96 fL 80-97 Mean Corpuscular Hemoglobin 33 pg High 27-31 Mean Corpuscular HGB Conc 35 g/dL 31-36 Red Cell Distribution Width 15 % 10.5-15 Platelet Count 285 10^3/uL 150-450 Mean Platelet Volume 7.1 um3 Low 7.4-10.4 Abs Neutrophils 4.0 10^3/uL 1.5-7.7 Abs Lymphocytes 2.9 10^3/uL 1.0-4.8 Abs Monocytes 0.3 10^3/uL 0-0.8 Abs Eosinophils 0.1 10^3/uL 0-0.6 Abs Basophils 0.1 10^3/uL 0-0.2 Abs Nucleated RBC 0 10^3/uL Granulocyte % 54.4 % 38-83 Lymphocyte % 39.0 % 25-47 Monocyte % 4.6 % 0-7 Eosinophil % 1.2 % 0-6 Basophil % 0.8 % 0-2 Nucleated Red Blood Cells % 0 Urine Drug SCR ED & 08/13/2017 Amphetamine Ur Screen None Detected None Detect Pain Clinic Barbiturates Urine Screen None Detected None Detect Benzodiazepine Urine Screen None Detected None Detect Urine Cannabinoids Screen None Detected None Detect Urine Cocaine Screen None Detected None Detect Urine Opiates Screen None Detected None Detect Urine Phencyclidine Screen None Detected None Detect 1 Comp Metabolic Panel 08/13/2017 Sodium 144 mmol/L 135-145 Potassium 3.4 mmol/L Low 3.5-5.0 Chloride 110 mmol/L 101-111 Co2 Carbon Dioxide 25 mmol/L 22-32 Anion Gap 9 mmol/L 2-11 Glucose 107 mg/dL High 70-100 Blood Urea Nitrogen 10 mg/dL 6-24 Creatinine 0.77 mg/dL 0.51-0.95 BUN/Creatinine Ratio 13.0 8-20 Calcium 8.9 mg/dL 8.6-10.3 Total Protein 7.0 g/dL 6.4-8.9 Albumin 4.5 g/dL 3.2-5.2 Globulin 2.5 g/dL 2-4 Albumin/Globulin Ratio 1.8 1-3 Total Bilirubin 0.30 mg/dL 0.2-1.0 Alkaline Phosphatase 50 U/L 34-104 Alt 13 U/L 7-52 Ast 18 U/L 13-39 Egfr Non- 83.9 >60 Egfr 101.5 >60 2 Laboratory test finding 08/13/2017 HCG < 0.60 mIU/mL 3 Acetaminophen < 15 g/mL 4 Alcohol 314 mg/dL High <10 Salicylate < 2.50 mg/dL <30 TSH (Thyroid Stim Horm) 1.19 mcIU/mL 0.34-5.60 Liver Function Panel 12/27/2016 Total Protein 7.0 g/dL 6.4-8.9 Albumin 4.4 g/dL 3.2-5.2 Globulin 2.6 g/dL 2-4 Albumin/Globulin Ratio 1.7 1-3 Total Bilirubin 0.30 mg/dL 0.2-1.0 Direct Bilirubin 0.10 mg/dL 0.03-0.18 Indirect Bilirubin 0.2 mg/dL Low 0.3-1.0 Alkaline Phosphatase 44 U/L 34-104 Alt 15 U/L 7-52 Ast 15 U/L 13-39 Laboratory test finding 12/01/2016 Alcohol 181 mg/dL High <10 Laboratory test finding 11/30/2016 Magnesium 2.0 mg/dL 1.9-2.7 Urinalysis Profile 11/30/2016 Urine Color Straw Urine Appearance Clear Urine Specific [place] 1.004 Low 1.010-1.030 Urine pH 5.0 5-9 Urine Urobilinogen Negative Negative Urine Ketones Negative Negative Urine Protein Negative Negative Urine Leukocytes Negative Negative Urine Blood Negative Negative Urine Nitrite Negative Negative Urine Bilirubin Negative Negative Urine Glucose Negative Negative Urine Drug SCR ED & 11/30/2016 Amphetamine Ur Screen None Detected None Detect Pain Clinic Barbiturates Urine Screen None Detected None Detect Benzodiazepine Urine Screen None Detected None Detect Urine Cannabinoids Screen None Detected None Detect Urine Cocaine Screen None Detected None Detect Urine Opiates Screen None Detected None Detect Urine Phencyclidine Screen None Detected None Detect 5 CBC Auto Diff 11/30/2016 White Blood Count 8.1 10^3/uL 3.5-10.8 Red Blood Count 4.14 10^6/uL 4.0-5.4 Hemoglobin 13.2 g/dL 12.0-16.0 Hematocrit 39 % 35-47 Mean Corpuscular Volume 94 fL 80-97 Mean Corpuscular Hemoglobin 32 pg High 27-31 Mean Corpuscular HGB Conc 34 g/dL 31-36 Red Cell Distribution Width 15 % 10.5-15 Platelet Count 305 10^3/uL 150-450 Mean Platelet Volume 8 um3 7.4-10.4 Abs Neutrophils 2.6 10^3/uL 1.5-7.7 Abs Lymphocytes 4.9 10^3/uL High 1.0-4.8 Abs Monocytes 0.4 10^3/uL 0-0.8 Abs Eosinophils 0.1 10^3/uL 0-0.6 Abs Basophils 0.1 10^3/uL 0-0.2 Abs Nucleated RBC 0.01 10^3/uL Granulocyte % 32.7 % Low 38-83 Lymphocyte % 60.8 % High 25-47 Monocyte % 4.8 % 1-9 Eosinophil % 0.8 % 0-6 Basophil % 0.9 % 0-2 Nucleated Red Blood Cells % 0.1 Laboratory test finding 11/30/2016 Magnesium 2.0 mg/dL 1.9-2.7 Acetaminophen < 15 g/mL 6 Salicylate < 2.50 mg/dL <30 Comp Metabolic Panel 11/30/2016 Sodium 139 mmol/L 133-145 Potassium 3.8 mmol/L 3.5-5.0 Chloride 106 mmol/L 101-111 Co2 Carbon Dioxide 24 mmol/L 22-32 Anion Gap 9 mmol/L 2-11 Glucose 101 mg/dL High 70-100 Blood Urea Nitrogen 7 mg/dL 6-24 Creatinine 0.67 mg/dL 0.51-0.95 BUN/Creatinine Ratio 10.4 8-20 Calcium 9.1 mg/dL 8.6-10.3 Total Protein 7.6 g/dL 6.4-8.9 Albumin 4.7 g/dL 3.2-5.2 Globulin 2.9 g/dL 2-4 Albumin/Globulin Ratio 1.6 1-3 Total Bilirubin 0.30 mg/dL 0.2-1.0 Alkaline Phosphatase 37 U/L 34-104 Alt 15 U/L 7-52 Ast 17 U/L 13-39 Egfr Non- 99.0 >60 Egfr 127.4 >60 7 Laboratory test finding 11/30/2016 Alcohol 425 mg/dL High <10 8 HCG < 0.60 mIU/mL 9 TSH (Thyroid Stim Horm) 1.00 mcIU/mL 0.34-5.60 CBC Auto Diff 11/08/2016 White Blood Count 5.2 10^3/uL 3.5-10.8 Red Blood Count 3.82 10^6/uL Low 4.0-5.4 Hemoglobin 12.2 g/dL 12.0-16.0 Hematocrit 36 % 35-47 Mean Corpuscular Volume 95 fL 80-97 Mean Corpuscular Hemoglobin 32 pg High 27-31 Mean Corpuscular HGB Conc 34 g/dL 31-36 Red Cell Distribution Width 15 % 10.5-15 Platelet Count 253 10^3/uL 150-450 Mean Platelet Volume 8 um3 7.4-10.4 Abs Neutrophils 3.2 10^3/uL 1.5-7.7 Abs Lymphocytes 1.6 10^3/uL 1.0-4.8 Abs Monocytes 0.3 10^3/uL 0-0.8 Abs Eosinophils 0 10^3/uL 0-0.6 Abs Basophils 0 10^3/uL 0-0.2 Abs Nucleated RBC 0 10^3/uL Granulocyte % 62.1 % 38-83 Lymphocyte % 30.3 % 25-47 Monocyte % 6.1 % 1-9 Eosinophil % 0.6 % 0-6 Basophil % 0.9 % 0-2 Nucleated Red Blood Cells % 0 Comp Metabolic Panel 11/08/2016 Sodium 137 mmol/L 133-145 Potassium 4.3 mmol/L 3.5-5.0 Chloride 103 mmol/L 101-111 Co2 Carbon Dioxide 28 mmol/L 22-32 Anion Gap 6 mmol/L 2-11 Glucose 96 mg/dL 70-100 Blood Urea Nitrogen 13 mg/dL 6-24 Creatinine 0.59 mg/dL 0.51-0.95 BUN/Creatinine Ratio 22.0 High 8-20 Calcium 9.3 mg/dL 8.6-10.3 Total Protein 6.8 g/dL 6.4-8.9 Albumin 4.4 g/dL 3.2-5.2 Globulin 2.4 g/dL 2-4 Albumin/Globulin Ratio 1.8 1-3 Alkaline Phosphatase 40 U/L 34-104 Alt 18 U/L 7-52 Ast 19 U/L 13-39 Egfr Non- 114.7 >60 Egfr 147.5 >60 10 Total Bilirubin 0.30 mg/dL 0.2-1.0 Urinalysis Profile 05/21/2016 Urine Color Straw Urine Appearance Clear Urine Specific [place] 1.006 Low 1.010-1.030 Urine pH 5.0 5-9 Urine Urobilinogen Negative Negative Urine Ketones Negative Negative Urine Protein Negative Negative Urine Leukocytes Negative Negative Urine Blood 1+ Negative Urine Nitrite Negative Negative Urine Bilirubin Negative Negative Urine Glucose Negative Negative Urine White Blood Cell Trace(0-5/hpf) Absent Urine Red Blood Cell Trace(0-2/hpf) Absent Urine Bacteria 1+ Absent Urine Squamous Epithelial Cell Present Absent Urine Uric Acid Crystals Present Absent CBC Auto Diff 05/21/2016 White Blood Count 6.7 10^3/uL 3.5-10.8 Red Blood Count 4.44 10^6/uL 4.0-5.4 Hemoglobin 14.7 g/dL 12.0-16.0 Hematocrit 44 % 35-47 Mean Corpuscular Volume 99 fL High 80-97 Mean Corpuscular Hemoglobin 33 pg High 27-31 Mean Corpuscular HGB Conc 33 g/dL 31-36 Red Cell Distribution Width 13 % 10.5-15 Platelet Count 261 10^3/uL 150-450 Mean Platelet Volume 7 um3 Low 7.4-10.4 Abs Neutrophils 2.6 10^3/uL 1.5-7.7 Abs Lymphocytes 3.5 10^3/uL 1.0-4.8 Abs Monocytes 0.4 10^3/uL 0-0.8 Abs Eosinophils 0.1 10^3/uL 0-0.6 Abs Basophils 0.1 10^3/uL 0-0.2 Abs Nucleated RBC 0 10^3/uL Granulocyte % 38.8 % 38-83 Lymphocyte % 52.7 % High 25-47 Monocyte % 5.8 % 1-9 Eosinophil % 1.3 % 0-6 Basophil % 1.4 % 0-2 Nucleated Red Blood Cells % 0 Urine Drug SCR ED & 05/21/2016 Amphetamine Ur Screen None Detected None Detect Pain Clinic Barbiturates Urine Screen None Detected None Detect Benzodiazepine Urine Screen None Detected None Detect Urine Cannabinoids Screen None Detected None Detect Urine Cocaine Screen None Detected None Detect Urine Opiates Screen None Detected None Detect Urine Phencyclidine Screen None Detected None Detect 11 Comp Metabolic Panel 05/21/2016 Sodium 137 mmol/L 133-145 Potassium 4.1 mmol/L 3.5-5.0 Chloride 104 mmol/L 101-111 Co2 Carbon Dioxide 24 mmol/L 22-32 Anion Gap 9 mmol/L 2-11 Glucose 92 mg/dL 70-100 Blood Urea Nitrogen 9 mg/dL 6-24 Creatinine 0.66 mg/dL 0.51-0.95 BUN/Creatinine Ratio 13.6 8-20 Calcium 9.5 mg/dL 8.6-10.3 Total Protein 8.1 g/dL 6.4-8.9 Albumin 5.0 g/dL 3.2-5.2 Globulin 3.1 g/dL 2-4 Albumin/Globulin Ratio 1.6 1-3 Total Bilirubin 0.20 mg/dL 0.2-1.0 Alkaline Phosphatase 52 U/L 34-104 Alt 18 U/L 7-52 Ast 22 U/L 13-39 Egfr Non- 100.8 >60 Egfr 129.6 >60 12 Laboratory test finding 05/21/2016 Acetaminophen < 15 g/mL 13 Alcohol 352 mg/dL High <10 Salicylate < 2.50 mg/dL <30 TSH (Thyroid Stim Horm) 0.71 mcIU/mL 0.34-5.60 Urine Culture And 05/21/2016 Urine Culture SEE RESULT BELOW 14 Sensitivities CBC Auto Diff 02/25/2016 White Blood Count 6.3 10^3/uL 3.5-10.8 Red Blood Count 4.07 10^6/uL 4.0-5.4 Hemoglobin 13.9 g/dL 12.0-16.0 Hematocrit 41 % 35-47 Mean Corpuscular Volume 101 fL High 80-97 Mean Corpuscular Hemoglobin 34 pg High 27-31 Mean Corpuscular HGB Conc 34 g/dL 31-36 Red Cell Distribution Width 13 % 10.5-15 Platelet Count 226 10^3/uL 150-450 Mean Platelet Volume 8 um3 7.4-10.4 Abs Neutrophils 4.4 10^3/uL 1.5-7.7 Abs Lymphocytes 1.5 10^3/uL 1.0-4.8 Abs Monocytes 0.4 10^3/uL 0-0.8 Abs Eosinophils 0.1 10^3/uL 0-0.6 Abs Basophils 0.1 10^3/uL 0-0.2 Abs Nucleated RBC 0 10^3/uL Granulocyte % 68.8 % 38-83 Lymphocyte % 23.2 % Low 25-47 Monocyte % 6.1 % 1-9 Eosinophil % 1.1 % 0-6 Basophil % 0.8 % 0-2 Nucleated Red Blood Cells % 0 Comp Metabolic Panel 02/25/2016 Sodium 136 mmol/L 133-145 Potassium 3.8 mmol/L 3.5-5.0 Chloride 102 mmol/L 101-111 Co2 Carbon Dioxide 26 mmol/L 22-32 Anion Gap 8 mmol/L 2-11 Glucose 114 mg/dL High 70-100 Blood Urea Nitrogen 11 mg/dL 6-24 Creatinine 0.63 mg/dL 0.51-0.95 BUN/Creatinine Ratio 17.5 8-20 Calcium 9.0 mg/dL 8.6-10.3 Total Protein 7.0 g/dL 6.4-8.9 Albumin 4.3 g/dL 3.2-5.2 Globulin 2.7 g/dL 2-4 Albumin/Globulin Ratio 1.6 1-3 Total Bilirubin 0.50 mg/dL 0.2-1.0 Alkaline Phosphatase 57 U/L 34-104 Alt 17 U/L 7-52 Ast 24 U/L 13-39 Egfr Non- 106.9 >60 Egfr 137.5 >60 15 Laboratory test finding 02/25/2016 TSH (Thyroid Stim 2.01 mcIU/mL 0.34- 5.60 16 Horm) Vitamin D Total 25(Oh) 26.3 ng/mL Low 30-50 17 Lipid Profile (Trig/Chol/HDL) 02/25/2016 Triglycerides 125 mg/dL 18 Cholesterol 193 mg/dL 19 HDL Cholesterol 102.3 mg/dL 20 LDL Cholesterol 66 mg/dL 21 1 The urine specimen was tested at the listed cutoffs: Drug class test level (ng/mL) Amphetamines 500 Barbiturates 200 Benzodiazepine metabolites 200 Cocaine metabolites 150 Cannabinoids 50 Opiates 300 Pcp 25 Specimen was received without chain of custody. Results should be used for medical purposes only. 2 Because ethnic data is not always readily available, this report includes an eGFR for both -Americans and non- Americans. The National Kidney Disease Education Program (NKDEP) does not endorse the use of the MDRD equation for patients that are not between the ages of 18 and 70, are , have extremes of body size, muscle mass, or nutritional status, or are non- or non-. According to the National Kidney Foundation, irrespective of diagnosis, the stage of the disease is based on the level of kidney function: Stage Description GFR(mL/min/1.73 m(2)) 1 Kidney damage with normal or decreased GFR 90 2 Kidney damage with mild decrease in GFR 60-89 3 Moderate decrease in GFR 30-59 4 Severe decrease in GFR 15-29 5 Kidney failure <15 (or dialysis) 3 <5.0 Negative 5.0 - 25.0 Indeterminate (Repeat testing recommended after 72 hours) >25.0 Positive Perimenopausal women can display HCG levels of up to 20 mIU/mL 4 Therapeutic concentration: <50 ug/mL Toxic concentration: >120 ug/mL 5 The urine specimen was tested at the listed cutoffs: Drug class test level (ng/mL) Amphetamines 500 Barbiturates 200 Benzodiazepine metabolites 200 Cocaine metabolites 150 Cannabinoids 50 Opiates 300 Pcp 25 Specimen was received without chain of custody. Results should be used for medical purposes only. 6 Therapeutic concentration: <50 ug/mL Toxic concentration: >120 ug/mL 7 Because ethnic data is not always readily available, this report includes an eGFR for both -Americans and non- Americans. The National Kidney Disease Education Program (NKDEP) does not endorse the use of the MDRD equation for patients that are not between the ages of 18 and 70, are , have extremes of body size, muscle mass, or nutritional status, or are non- or non-. According to the National Kidney Foundation, irrespective of diagnosis, the stage of the disease is based on the level of kidney function: Stage Description GFR(mL/min/1.73 m(2)) 1 Kidney damage with normal or decreased GFR 90 2 Kidney damage with mild decrease in GFR 60-89 3 Moderate decrease in GFR 30-59 4 Severe decrease in GFR 15-29 5 Kidney failure <15 (or dialysis) 8 Verbal to [id number] by [id number] at 2354 on 11/30/16. Results read back accurately. 9 <5.0 Negative 5.0 - 25.0 Indeterminate (Repeat testing recommended after 72 hours) >25.0 Positive Perimenopausal women can display HCG levels of up to 20 mIU/mL 10 Because ethnic data is not always readily available, this report includes an eGFR for both -Americans and non- Americans. The National Kidney Disease Education Program (NKDEP) does not endorse the use of the MDRD equation for patients that are not between the ages of 18 and 70, are , have extremes of body size, muscle mass, or nutritional status, or are non- or non-. According to the National Kidney Foundation, irrespective of diagnosis, the stage of the disease is based on the level of kidney function: Stage Description GFR(mL/min/1.73 m(2)) 1 Kidney damage with normal or decreased GFR 90 2 Kidney damage with mild decrease in GFR 60-89 3 Moderate decrease in GFR 30-59 4 Severe decrease in GFR 15-29 5 Kidney failure <15 (or dialysis) 11 The urine specimen was tested at the listed cutoffs: Drug class test level (ng/mL) Amphetamines 500 Barbiturates 200 Benzodiazepine metabolites 200 Cocaine metabolites 150 Cannabinoids 50 Opiates 300 Pcp 25 Specimen was received without chain of custody. Results should be used for medical purposes only. 12 Because ethnic data is not always readily available, this report includes an eGFR for both -Americans and non- Americans. The National Kidney Disease Education Program (NKDEP) does not endorse the use of the MDRD equation for patients that are not between the ages of 18 and 70, are , have extremes of body size, muscle mass, or nutritional status, or are non- or non-. According to the National Kidney Foundation, irrespective of diagnosis, the stage of the disease is based on the level of kidney function: Stage Description GFR(mL/min/1.73 m(2)) 1 Kidney damage with normal or decreased GFR 90 2 Kidney damage with mild decrease in GFR 60-89 3 Moderate decrease in GFR 30-59 4 Severe decrease in GFR 15-29 5 Kidney failure <15 (or dialysis) 13 Therapeutic concentration: <50 ug/mL Toxic concentration: >120 ug/mL 14 SEE RESULT BELOW Name: INOCENCIA BONNER: [address]: Dave Thomas DO Acct: [id number] Unit: [id number] AGE: 36 Location: ED Re05/21/16 SEX: F Status: DEP ER SPEC: [id number] KAYLIN: 05/21/[address]: Pratima OSORIO REQ: [id number] RECD: 05/21/16 STATUS: COMP MICHELLE DR: Dave Cullen [employer] _ SOURCE: URINE SPDESC: ORDERED: Urine Culture Procedure Result Reported Site Urine Culture Final 05/23/16- 0851 ML No Growth (<1,000 CFU/mL) * ML - MAIN LAB (PSC1) . END OF REPORT * ML=Testing performed at Main Lab DEPARTMENT OF PATHOLOGY, [address] [place] [address] Jonatan Muse M.D. Director [facility] # [id number] 15 Because ethnic data is not always readily available, this report includes an eGFR for both -Americans and non- Americans. The National Kidney Disease Education Program (NKDEP) does not endorse the use of the MDRD equation for patients that are not between the ages of 18 and 70, are , have extremes of body size, muscle mass, or nutritional status, or are non- or non-. According to the National Kidney Foundation, irrespective of diagnosis, the stage of the disease is based on the level of kidney function: Stage Description GFR(mL/min/1.73 m(2)) 1 Kidney damage with normal or decreased GFR 90 2 Kidney damage with mild decrease in GFR 60-89 3 Moderate decrease in GFR 30-59 4 Severe decrease in GFR 15-29 5 Kidney failure <15 (or dialysis) 16 FASTING 10 HOUR 17 FASTING 10 HOUR 18 Desirable <150 Borderline high 150-199 High 200-499 Very High >500 19 Desirable <200 Borderline high 200-239 High >239 20 Low <40 Desirable: 40-60 High: >60 21 Desirable: <100 mg/dL Near Optimal: 100-129 mg/dL Borderline High: 130-159 mg/dL High: 160-189 mg/dL Very High: >189 mg/dL Procedures Date CPT Code Description Status 06/29/2016 53486 Excision Tumor Soft Tissue Abdominal Wall Subcutaneous Completed 3 CM Or > 03/08/2016 09894 CLSD TX Distal Fib FX (Lateral Malleolus) w/o Completed manipulation Encounters Type Date Location Provider CPT E/M Dx Office Visit 07/25/2017 [facility] [place] [id number] J01.90 11:40a - [place] Office Visit 03/16/2017 [facility] [place] [address] J01.90 11:50a - [address] J01.00 Office Visit 11/15/2016 10:20a [facility] Jennifer Juvenal, N.P. [address] M25.511 - [place] M54.2 Office Visit 10/27/2016 4:00p [facility] [place] [address] F10.20 [place] Office Visit 08/06/2016 10:40a [facility] [place] [address] F10.20 [place] Office Visit 06/22/2016 9:40a [facility] [place] [address] F41.9 [place] R22.9 Office Visit 03/10/2016 10:20a [facility] - Fidencio [place] [address] F41.9 Phillips Z23 Office Visit 02/11/2016 11:00a [facility] Internal [place] [id number] Z00.00 Luis Alfredo F41.9 R53.83 Z13.220 Z00.01 Plan of Care 10/17/2017 - Fidencio Monreal NPF10.11 Alcohol abuse, in remissionComments:Continue with current medications.J06.9 Acute upper respiratory infection, unspecifiedNew Medication:Fluticasone Propionate 50 mcg/ActComments:Your symptoms are consistent with a viral upper respiratory infection. I recommend treating symptomatically. You can taken Mucinex as directed. Drink plenty of fluids and try to rest as much as possible. If your symptoms worsen or do not improve by the end of the week please call the office.F41.9 Anxiety disorder, unspecifiedComments:Increase the Buspar to twice daily.Follow up:6 months and PRN
[2017-10-19] MEDS ORDERED: NS 0.9% 1000 ML* 2,000 ML IV ONE (12:43)
[2017-10-19 12:59] LABS: ABS Basophils 0.1 10^3/ul (0-0.2); ABS Eosinophils 0.1 10^3/ul (0-0.6); ABS Lymphocytes 2.4 10^3/ul (1.0-4.8); ABS Monocytes 0.3 10^3/ul (0-0.8); ABS Neutrophils 2.5 10^3/ul (1.5-7.7); ABS Nucleated RBC 0 10^3/ul; Eosinophil % 2.3 % (0-6); Hematocrit 39 % (35-47); Lymphocyte % 44.1 % (25-47); Mean Corpuscular HGB Conc 34 g/dl (31-36); Mean Corpuscular Hemoglobin 33 pg (27-31); Mean Corpuscular Volume 97 fL (80-97); Mean Platelet Volume 7.2 um3 (7.4-10.4); Nucleated Red Blood Cells % 0.1; Platelet Count 233 10^3/ul (150-450); Red Blood Count 3.99 10^6/ul (4.00-5.40); Red Cell Distribution Width 14 % (10.5-15); White Blood Count 5.3 10^3/ul (3.5-10.8)
--- NOTE | 2017-10-19 13:09 | ED ---
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 Patient has been ill for the past five days with dizziness, fatigue, and diarrhea. She saw her PCP two days ago for symptoms. She felt better yesterday but symptoms returned today. Dizziness and fatigue are still present. Denies vomiting. Denies recent changes to anxiety medication. - History Of Current Complaint Chief Complaint: EDSyncope Time Seen by Provider: 10/19/17 12:31 Hx Obtained From: Patient Onset/Duration: Lasting Days Context: Unwitnessed, Loss Of Consciousness Associated Head Trauma: No Alleviating Factor(s): Spontaneous Resolution Associated Signs And Symptoms: Diarrhea, Dizzy, Other - fatigue - Allergies/Home Medications Allergies/Adverse Reactions: Allergies Allergy/AdvReac Type Severity Reaction Status Date / Time No Known Allergies Allergy Verified 11/30/16 21:09 PMH/Surg Hx/FS Hx/Imm Hx Endocrine/Hematology History: Denies: Hx Diabetes, Hx Thyroid Disease Cardiovascular History: Denies: Hx Hypertension Respiratory History: Denies: Hx Asthma, Hx Chronic Obstructive Pulmonary Disease (COPD) GI History: Denies: Hx Ulcer Psychiatric History: Reports: Hx Anxiety, Hx Substance Abuse - Alcohol Denies: Hx Eating Disorder, Hx of Violent Episodes Against Others - Surgical History Surgery Procedure, Year, and Place: csection X2, BTL Infectious Disease History: No Infectious Disease History: Denies: Hx Hepatitis, Hx Human Immunodeficiency Virus (HIV), Traveled Outside the [place] in Last 30 Days - Family History Known Family History: Negative: Cardiac Disease Family History: no cardiovascular issues in family lineage - Social History Alcohol Use: Weekly Hx Substance Use: No Substance Use Type: Reports: None Hx Tobacco Use: Yes Smoking Status (MU): Light Every Day Tobacco Smoker Review of Systems Positive: Fatigue Positive: Diarrhea. Negative: Vomiting Neurological: Other - dizziness Positive: Syncope All Other Systems Reviewed And Are Negative: Yes Physical Exam - Summary Physical Exam Summary: Appearance: Well appearing, no pain distress Skin: warm, dry, reflects adequate perfusion Head/face: normal Eyes: EOMI, FLAQUITA ENT: normal Neck: supple, non-tender Respiratory: CTA, breath sounds present Cardiovascular: RRR, pulses symmetrical Abdomen: non-tender, soft Bowel: present Musculoskeletal: normal, strength/ROM intact Neuro: normal, sensory motor intact, A&Ox3 Triage Information Reviewed: Yes Vital Signs On Initial Exam: Initial Vitals Temp Pulse Resp BP Pulse Ox 98.2 F 62 16 102/65 99 10/19/17 12:15 10/19/17 12:15 10/19/17 12:15 10/19/17 12:15 10/19/17 12:15 Vital Signs Reviewed: Yes Diagnostics - Vital Signs Vital Signs Temp Pulse Resp BP Pulse Ox 10/19/17 12:15 98.2 F 62 16 102/65 99 - Laboratory Result Diagrams: 10/19/17 12:51 10/19/17 12:51 Lab Statement: Any lab studies that have been ordered have been reviewed, and results considered in the medical decision making process. - Radiology CXR Radiology Interpretation Completed By: Radiologist - NO EVIDENCE FOR ACUTE DISEASE. ED Physician has reviewed this report. - CT Brain CT CT Interpretation Completed By: Radiologist - NEGATIVE EXAMINATION. ED Physician has reviewed this report. 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 Patient has been ill for the past five days with dizziness, fatigue, and diarrhea. She saw her PCP two days ago for symptoms. Brain CT and CXR are unremarkable. EKG reveals NSR at 53bpm, with no acute changes. Bloodwork and UA are unremarkable. Patient is given 2L IVF. Patient will be discharged. Patient is agreeable with this plan. - Diagnoses Differential Diagnosis/HQI/PQRI: Positive: Dysrhythmia, Hypovolemia, Vasovagal Episode Provider Diagnoses: Vasovagal syncope Discharge - Sign-Out/Discharge Documenting (check all that apply): Patient Departure - discharge - Discharge Plan Condition: Stable Disposition: HOME Patient Education Materials: Syncope (ED) Referrals: Fidencio Monreal NP [Primary Care Provider] - 3 Days Additional Instructions: RETURN TO THE EMERGENCY DEPARTMENT FOR CHANGING OR WORSENING SYMPTOMS. - Billing Disposition and Condition Condition: STABLE Disposition: Home - Attestation Statements Document Initiated by Scribe: Yes Documenting Scribe: Meera Burks Provider For Whom Scribe is Documenting (Include Credential): Atilio Cespedes MD Scribe Attestation: I, Meera Burks, scribed for Atilio Cespedes MD on 10/19/17 at 1735. Scribe Documentation Reviewed: Yes Provider Attestation: The documentation as recorded by the scribe, Meera Burks accurately reflects the service I personally performed and the decisions made by me, Atilio Cespedes MD
[2017-10-19 13:11] LABS: INR 0.9 (0.77-1.02)
[2017-10-19 13:14] LABS: Urine Appearance Cloudy; Urine Blood Negative (Negative); Urine Color Yellow; Urine Ketones Negative (Negative); Urine Protein Negative (Negative); Urine Specific Gravity 1.021 (1.010-1.030); Urine Urobilinogen Negative (Negative)
[2017-10-19 13:18] LABS: EGFR Non-African American 90.7 (>60)
--- NOTE | 2017-10-19 13:33 | RAD ---
INDICATION: Syncope. COMPARISON: There are no relevant prior studies available for comparison. TECHNIQUE: A portable view of the chest was obtained. FINDINGS: Cardiac and mediastinal contours appear to be within normal limits. The lungs are clear. No pleural effusion is seen. IMPRESSION: NO EVIDENCE FOR ACUTE DISEASE.
--- NOTE | 2017-10-19 13:42 | RAD ---
INDICATION: Syncope COMPARISON: None TECHNIQUE: Noncontrast axial source images were acquired from the skull base to the vertex. FINDINGS: Ventricles/sulci: The ventricles and cisterns are normal in size and configuration for age. Brain parenchyma: There is no focal parenchymal finding, evidence of intracranial mass, or intracranial mass effect. Intracranial hemorrhage:None. Extra-axial spaces: There are no abnormal extra axial fluid collections or evidence of extra-axial mass. Calvarium: There is no calvarial fracture or other calvarial abnormality. Scalp: There is no evidence of scalp or extracalvarial soft tissue abnormality. Paranasal sinuses/mastoid: The paranasal sinuses and mastoid air cells are clear. Other: None. IMPRESSION: NEGATIVE EXAMINATION
[2017-10-19 15:10] VITALS: BP 106/56
== END 2017-10-19 15:09 | disposition home or self-care (01) ==
LOC: ED 12:13
DX: R55 Syncope and collapse (principal); F17.200 Nicotine dependence, unspecified, uncomplicated
CPT/HCPCS: 36415; 70450; 71045; 80053; 81003; 84484; 84702; 85025; 85610; 85730; 93005; 99283

== ENCOUNTER 2018-08-03 09:59 | Emergency (ER) | payer BC ==
[2018-08-03 10:10] VITALS: BP 107/71
--- NOTE | 2018-08-03 11:11 | UC ---
Back Pain HPI - HPI Summary HPI Summary: Ms. Gonzales hurt her back a few months ago and recovered fully but was recently moving some furniture and began to feel as though her back was getting tight as was her left buttock area. She felt a sudden pop and has had pain in her low back and down her bilateral legs left worse than the right since. It hurts to move and she called in sick to work today. - History of Current Complaint Chief Complaint: UCBackPain Stated Complaint: BACK INJURY Time Seen by Provider: 08/03/18 10:50 Hx Obtained From: Patient Hx Last Menstrual Period: 08/08/18 ?: Yes Onset/Duration: Gradual Onset Timing: Constant Severity Initially: Severe Severity Currently: Severe Pain Intensity: 10 Character: Spasmodic, Stiffness Aggravating Factor(s): Movement Alleviating Factor(s): Rest Associated Signs And Symptoms: Positive: Negative - Allergies/Home Medications Allergies/Adverse Reactions: Allergies Allergy/AdvReac Type Severity Reaction Status Date / Time No Known Allergies Allergy Verified 08/03/18 10:11 PMH/Surg Hx/FS Hx/Imm Hx Previously Healthy: Yes - Surgical History Surgical History: Yes Surgery Procedure, Year, and Place: csection X2, BTL - Family History Known Family History: Positive: None Negative: Cardiac Disease Family History: no cardiovascular issues in family lineage - Social History Alcohol Use: Weekly Substance Use Type: None Smoking Status (MU): Light Every Day Tobacco Smoker - Immunization History Most Recent Influenza Vaccination: declined Most Recent Tetanus Shot: 10/12/13 Most Recent Pneumonia Vaccination: none Review of Systems All Other Systems Reviewed And Are Negative: Yes Musculoskeletal: Positive: Decreased ROM Physical Exam - Summary Physical Exam Summary: She is nontoxic in appearance but obviously in pain. Her vitals are stable. Triage Information Reviewed: Yes Appearance: Well-Appearing, Pain Distress Vital Signs: Initial Vital Signs Temp 99.2 F 08/03/18 10:07 Pulse 70 08/03/18 10:07 Resp 17 08/03/18 10:07 BP 107/71 08/03/18 10:07 Pulse Ox 100 08/03/18 10:07 Vital Signs Reviewed: Yes Musculoskeletal: Positive: Strength Intact - She has a positive straight leg raise referring to the left bilaterally. This is about 30., ROM Intact Neurological Exam: Normal Back Pain Course/Dx - Course Course Of Treatment: Clinically this seems like it could be a disc injury although it may be all peripheral. She may need an MRI scan at some point. I don't think an x-ray is going to add anything. I recommended Ativan as a muscle relaxer briefly in conjunction with ibuprofen. She requested a steroid which worked for her last time and I will also give her a couple days of prednisone. - Differential Dx/Diagnosis Provider Diagnosis: Low back strain, Sciatica of left side Discharge - Sign-Out/Discharge Documenting (check all that apply): Patient Departure All imaging exams completed and their final reports reviewed: No Studies - Discharge Plan Condition: Stable Disposition: HOME Patient Education Materials: Sciatica (ED) Referrals: Fidencio Monreal NP [Primary Care Provider] - - Billing Disposition and Condition Condition: STABLE Disposition: Home
== END 2018-08-03 11:17 | disposition home or self-care (01) ==
LOC: UCEAST 09:59
DX: S39.012A Strain of muscle, fascia and tendon of lower back, initial encounter (principal); X50.0XXA Overexertion from strenuous movement or load, initial encounter; X50.9XXA Other and unspecified overexertion or strenuous movements or postures, initial encounter; Y93.89 Activity, other specified; Y92.9 Unspecified place or not applicable; F17.210 Nicotine dependence, cigarettes, uncomplicated
CPT/HCPCS: 99212; G0463

== ENCOUNTER 2018-12-18 10:18 | Emergency (ER) | payer BC ==
--- NOTE | 2018-12-18 10:44 | ED ---
Dizziness - HPI Summary HPI Summary: This patient is a 38 year old female presenting to [facility] with a chief complaint of dizziness since yesterday. She states she currently has endometriosis and is getting surgery in a month and has been experiencing bleeding. She reports suprapubic/pelvic pain secondary to these symptoms. She also reports back pain. She states her dizziness mostly affects her when she stands up, and that the room is not spinning. She reports headache and weakness. She states she is currently experiencing her third menstrual period this month. She states her bleeding is not heavy. She denies CP and SOB. Cholecalciferol (Vitamin D3) [Vitamin D3] 2,000 unit PO DAILY 03/04/16 [History Confirmed 08/03/18] LORazepam TAB(*) [Ativan TAB(*)] 1 mg PO Q6H PRN #10 tab MDD 4 08/03/18 [Rx] LORazepam TAB(*) [Ativan TAB(*)] 1 mg PO Q6H PRN #10 tab MDD 4 08/03/18 [Rx] predniSONE [Prednisone 20 MG TAB] 20 mg PO BID #4 tablet 08/03/18 [Rx] - History Of Current Complaint Chief Complaint: EDAbdPain Stated Complaint: ABDOMINAL/BACK PAIN,DIZZY,SHAKY PER PT Time Seen by Provider: 12/18/18 10:35 Hx Obtained From: Patient Onset/Duration: Still Present Character: Lightheaded, Weak - Allergies/Home Medications Allergies/Adverse Reactions: Allergies Allergy/AdvReac Type Severity Reaction Status Date / Time No Known Allergies Allergy Verified 12/18/18 10:31 Home Medications: Home Medications Amphetamine MIXED SALT TAB* [Adderall TAB*] 10 mg PO DAILY 12/18/18 [History Confirmed 12/18/18] Ascorbic Acid/Vitamin E/Biotin [Hair/Skin/Nails 1250-7.5-7.5 Mcg-mg-Unt] 1 chw PO DAILY 12/18/18 [History Confirmed 12/18/18] Escitalopram * [Lexapro *] 20 mg PO DAILY 12/18/18 [History Confirmed 12/18/18] Iron 18 mg PO DAILY 12/18/18 [History Confirmed 12/18/18] L.acidoph,Paracasei, B.lactis [Probiotic] 1 each PO DAILY 12/18/18 [History Confirmed 12/18/18] busPIRone TAB* [Buspar TAB*] 20 mg PO BID 12/18/18 [History Confirmed 12/18/18] traZODone TAB* [Desyrel TAB*] 50 mg PO BEDTIME 12/18/18 [History Confirmed 12/18] PMH/Surg Hx/FS Hx/Imm Hx Endocrine/Hematology History: Denies: Hx Diabetes, Hx Thyroid Disease Cardiovascular History: Denies: Hx Hypertension Respiratory History: Denies: Hx Asthma, Hx Chronic Obstructive Pulmonary Disease (COPD) GI History: Denies: Hx Ulcer Psychiatric History: Reports: Hx Anxiety, Hx Substance Abuse - Alcohol Denies: Hx Eating Disorder, Hx of Violent Episodes Against Others - Surgical History Surgery Procedure, Year, and Place: csection X2, BTL Infectious Disease History: No Infectious Disease History: Denies: Hx Hepatitis, Hx Human Immunodeficiency Virus (HIV), Traveled Outside the [place] in Last 30 Days - Family History Known Family History: Negative: Cardiac Disease Family History: no cardiovascular issues in family lineage - Social History Alcohol Use: Weekly Hx Substance Use: No Substance Use Type: Reports: None Hx Tobacco Use: Yes Smoking Status (MU): Light Every Day Tobacco Smoker Review of Systems Negative: Chest Pain Negative: Shortness Of Breath Positive: Abdominal Pain Neurological: Other - Dizziness Positive: Headache, Weakness All Other Systems Reviewed And Are Negative: Yes Physical Exam - Summary Physical Exam Summary: Appearance: Well-appearing, Well-nourished, lying in bed comfortably Skin: Warm, dry, no obvious rash Eyes: sclera anicteric, no conjunctival pallor ENT: mucous membranes moist, pharynx appears normal Neck: Supple, nontender Respiratory: Clear to auscultation, no signs of respiratory distress Cardiovascular: Normal S1, S2. No murmurs. Normal distal pulses in tibial and radial bilaterally. Abdomen: Soft, nontender, normal active bowel sounds present Musculoskeletal: Normal, Strength/ROM Intact Neurological: A&Ox3, awake and alert, mentation is normal, speech is fluent and appropriate Psychiatric: affect is normal, does not appear anxious or depressed Triage Information Reviewed: Yes Vital Signs On Initial Exam: Initial Vitals Temp Pulse Resp BP Pulse Ox 99.1 F 88 16 123/78 100 12/18/18 10:28 12/18/18 10:28 12/18/18 10:28 12/18/18 10:28 12/18/18 10:28 Vital Signs Reviewed: Yes Procedures - Sedation Patient Received Moderate/Deep Sedation with Procedure: No Diagnostics - Vital Signs Vital Signs Temp Pulse Resp BP Pulse Ox 12/18/18 10:28 99.1 F 88 16 123/78 100 - Laboratory Result Diagrams: 12/18/18 11:05 12/18/18 11:05 Lab Statement: Any lab studies that have been ordered have been reviewed, and results considered in the medical decision making process. - EKG 1132 Cardiac Rate: NL - 60 BPM EKG Rhythm: Sinus Rhythm Summary of EKG Findings: NSR at 60 BPM, P waves, QRS complex, and T waves are within normal limits, T waves and intervals are normal, no ischemic changes. This is a normal EKG. ED Physician has reviewed and interpreted this report. Dizzy Course/Dx - Course Course Of Treatment: This patient is a 38 year old female presenting to [facility] with a chief complaint of dizziness since yesterday. The dizziness she describes sounds like near-syncope. Physical exam and EKG were unremarkable. Labs were unremarkable except MCV 100 H, MCH 34 H, and BUN/Creatinine Ratio 25.8 H. A plan for discharge was discussed with the patient and she was agreeable to this plan. - Diagnoses Provider Diagnoses: Near syncope Discharge ED - Sign-Out/Discharge Documenting (check all that apply): Patient Departure - Discharge - Discharge Plan Condition: Good Disposition: HOME Patient Education Materials: Near Syncope (ED) Referrals: Fidencio Monreal STATIC BALANCER [Nurse Practitioner] - - Billing Disposition and Condition Condition: GOOD Disposition: Home - Attestation Statements Document Initiated by Vinny: Yes Documenting Erikaibe: Garry Dacosta Provider For Whom Vinny is Documenting (Include Credential): Nahid Leung MD Scribgary Attestation: Garry Andrews scribed for Nahid Leung MD on 12/19/18 at 0753. Scribe Documentation Reviewed: Yes Provider Attestation: The documentation as recorded by the Garry kirkpatrick accurately reflects the service I personally performed and the decisions made by me, Nahid Leung MD Status of Scribe Document: Viewed
[2018-12-18] MEDS ORDERED: NS 0.9% 1000 ML** 1,000 ML IV ONE (10:51)
--- OUTSIDE RECORDS SUMMARY | 2018-12-18 11:24 | XMS REPORT | Continuity of Care Document ---
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 IN counseling. Trial of Naltrexone 08/07. Tobacco Use Start: Unknown Patient is a current 10 or fewer smoker, smokes every cigarettes a day day Recreational Drug Use Denies Drug Use Exercise Type/Frequency Walks 4 times a week 6 miles Allergies, Adverse Reactions, Alerts Description No Known Drug Allergies Medications Active Medications SIG Qnty Indications Ordering Date Provider Erika take one daily 28tabs N80.0 Josefa Corona, 11/03/2018 0.25-35mg-mcg Tablets DO Amphetamine-Dextroamphet take one daily 30tabs F90.9 Josefa Corona, 11/03 amine as needed DO 10mg Tablets Trazodone HCL take 1 tablet 30tabs Fidencio Monreal NP 10/17/2017 100mg Tablets by mouth at bedtime Buspirone HCL Take 1 Tablet 60tabs Fidencio Monreal NP 10/17/2017 5mg Tablets By Mouth Two Times Daily Escitalopram Oxalate Take 1 Tablet 30tabs Arun Helton MD 07/30/2017 20mg By Mouth Every Tablets Day Multi For Her once a day Unknown Tablets Iron (Ferrous Sulfate) take one Unknown capsule/tablet 142(45Fe) mg Tablets ER daily by mouth Diindolylmethane Unknown Powder Immunizations CPT Code Status Date Vaccine Reaction Lot # [id number] Given 03/10/2016 Influ Virus Vaccine, no immedite reactin noted [id number] Quadrivalent, Split ... hh Virus, Im Fluzone not PF Vital Signs Date Vital Result Comment 11/22/2018 10:53am Height 62.5 inches 5'2.50" Weight 119.00 lb Heart Rate 85 /min BP Systolic 141 mmHg BP Diastolic 90 mmHg O2 % BldC Oximetry 99 % BMI (Body Mass Index) 21.4 kg/m2 11/03/2018 11:11am Height 62.5 inches 5'2.50" Weight 123.31 lb Heart Rate 75 /min BP Systolic 130 mmHg BP Diastolic 81 mmHg Body Temperature 98.2 F O2 % BldC Oximetry 97 % BMI (Body Mass Index) 22.2 kg/m2 Results Test Date Facility Test Result H/L Range Note Laboratory test 11/22/2018 [facility] Surgical <pending> finding [address] [place] [address] [phone] Procedures Description No Information Available Medical Devices Description No Information Available Encounters Type Date Location Provider Dx Diagnosis Office Visit 10/11/2018 [facility] Bailee Boucher N94.6 Dysmenorrhea, 10:30a [facility] [place] unspecified Assessments Date Code Description Provider 11/22/2018 N92.1 Excessive and frequent menstruation with JADEN Kohler irregular cycle 11/22/2018 N94.6 Dysmenorrhea, unspecified [place] Kohler 11/03/2018 N80.0 Endometriosis of uterus Josefa Corona DO 11/03/2018 F90.9 Attention-deficit hyperactivity disorder, Josefa Corona DO unspecified type 11/03/2018 Z72.0 Tobacco use Josefa Corona DO 10/11/2018 N94.6 Dysmenorrhea, unspecified Rocío Kohler Plan of Treatment Future Appointment(s):01/19/2019 10:30 am - Gloria More MD at [facility]12/28/2018 10:00 am - Gloria More MD at [facility]01/12/2019 7:30 am - Gloria More MD at [facility]2018 - KIRK KohlerCdeN92.1 Excessive and frequent menstruation with irregular gyjlwD71.6 Dysmenorrhea, unspecified Functional Status Description No Information Available Mental Status Description No Information Available Referrals Description No Information Available
--- OUTSIDE RECORDS SUMMARY | 2018-12-18 11:24 | XMS REPORT | Continuity of Care Document ---
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 Anxiety state Fidencio Monreal NP Onset: 02/17/2016 Impaired fasting glycaemia Fidencio Monreal NP Onset: 02/29/2016 Alcohol abuse Fidencio Monreal NP Onset: 08/06/2016 Social History Type Date Description Comments Sex Unknown Tobacco Use Start: Unknown Light tobacco smoker (10 or fewer cigarettes/day) Smoking Status Reviewed: 11/03/18 Light tobacco smoker (10 or fewer cigarettes/day) [...] By Mouth Two Times Daily Escitalopram Oxalate take 1 tablet 30tabs Fidencio Monreal NP 07/30/2017 20mg by mouth every Tablets day Multi For Her once a day Unknown Tablets Iron (Ferrous Sulfate) take one Unknown capsule/tablet 142(45Fe) mg Tablets ER daily by mouth Diindolylmethane Unknown Powder Immunizations CPT Code Status Date Vaccine Reaction Lot # [id number] Given 03/10/2016 Influ Virus Vaccine, no immedite reactin noted [id number] Quadrivalent, Split ... hh Virus, Im Fluzone not PF Vital Signs Date Vital Result Comment 11/03/2018 11:11am Height 62.5 inches 5'2.50" Weight 123.31 lb Heart Rate 75 /min BP Systolic 130 mmHg BP Diastolic 81 mmHg Body Temperature 98.2 F O2 % BldC Oximetry 97 % BMI (Body Mass Index) 22.2 kg/m2 11/03/2018 11:10am Height 62.5 inches 5'2.50" Weight 123.31 lb BMI (Body Mass Index) 22.2 kg/m2 Results Description No Information Available Procedures Description No Information Available Medical Devices Description No Information Available Encounters Type Date Location Provider Dx Diagnosis Office Visit 10/11/2018 [facility] Matthias Kohler94.6 Dysmenorrhea, 10:30a Clinic [facility] 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 Assessments Date Code Description Provider 11/03/2018 N80.0 Endometriosis of uterus Josefa Corona DO 11/03/2018 F90.9 Attention-deficit hyperactivity disorder, Josefa Corona DO unspecified type 10/11/2018 N94.6 Dysmenorrhea, unspecified Rocío Kohler Plan of Treatment Future Appointment(s):01/19/2019 10:30 am - Gloria More MD at [facility]12/28/2018 10:00 am - Gloria More MD at [facility]01/12/2019 7:30 am - Gloria More MD at [facility]2018 - Josefa Corona DON80.0 Endometriosis of uterusNew Medication:Erika 0.25- 35 mg-mcg - take one ohrepR69.9 Attention-deficit hyperactivity disorder, unspecified typeNew Medication:Amphetamine-Dextroamphetamine 10 mg - take one daily as needed Functional Status Description No Information Available Mental Status Description No Information Available Referrals Description No Information Available
[2018-12-18 11:34] LABS: ABS Eosinophils 0.1 10^3/ul (0-0.6); ABS Lymphocytes 1.9 10^3/ul (1.0-4.8); ABS Monocytes 0.2 10^3/ul (0-0.8); ABS Neutrophils 3.4 10^3/ul (1.5-7.7); Eosinophil % 1.4 %; Hematocrit 39 % (35-47); Hemoglobin 13.3 g/dL (12.0-16.0); Lymphocyte % 33.7 %; Mean Corpuscular HGB Conc 34 g/dL (31-36); Mean Corpuscular Hemoglobin 34 pg (27-31); Mean Corpuscular Volume 100 fL (80-97); Mean Platelet Volume 7.8 fL (7.4-10.4); Nucleated Red Blood Cells % 0.1; Platelet Count 215 10^3/uL (150-450); Red Blood Count 3.87 10^6 /uL (3.70-4.87); Red Cell Distribution Width 13 % (10-15); White Blood Count 5.6 10^3/uL (3.5-10.8)
[2018-12-18 11:42] LABS: Albumin/Globulin Ratio 1.7 (1-3); BUN/Creatinine Ratio 25.8 (8-20); Calcium 9.1 mg/dL (8.6-10.3); EGFR African American 120.6 (>60); EGFR Non-African American 99.7 (>60); Globulin 2.4 g/dL (2-4); Potassium 3.8 mmol/L (3.5-5.0); Total Bilirubin 0.3 mg/dL (0.2-1.0); Total Protein 6.4 g/dL (6.4-8.9)
[2018-12-18 11:56] LABS: TSH (Thyroid Stimulating Horm) 0.58 mcIU/mL (0.34-5.60)
[2018-12-18 12:09] LABS: Urine Appearance Clear; Urine Bilirubin Negative (Negative); Urine Blood Negative (Negative); Urine Color Yellow; Urine Glucose Negative (Negative); Urine Ketones Negative (Negative); Urine Nitrite Negative (Negative); Urine Protein Negative (Negative); Urine Specific Gravity 1.013 (1.010-1.030); Urine Urobilinogen Negative (Negative)
[2018-12-18 15:09] VITALS: BP 104/73
== END 2018-12-18 14:38 | disposition home or self-care (01) ==
LOC: ED 10:18
DX: R55 Syncope and collapse (principal); F41.9 Anxiety disorder, unspecified; F17.210 Nicotine dependence, cigarettes, uncomplicated; Z79.899 Other long term (current) drug therapy
CPT/HCPCS: 36415; 80053; 81003; 84443; 84484; 85025; 93005; 96360; 96361; 99283

== ENCOUNTER → 2019-01-12 11:18 | Day surgery (SDC) | payer BC ==
[~2019-01-12 11:18] MED LIST: Buffered Lidocaine 1% SYRIN* 1 ML/SYRINGE INTRADERM ONE; Dexamethasone IV* 4 MG/ML 1 ML (4 MG) IV SLOW PU ONE; Dexamethasone IV* 4 MG/ML 1 ML (4 MG) ONE; DiMENhydriNATE IV* 50 MG/ML VIAL IV PUSH PRN; Famotidine IV* 10 MG/ML 2 ML (20 mg) IV ONE; Famotidine IV* 10 MG/ML 2 ML (20 mg) ONE; Ibuprofen TAB* 600 MG PO PRN; Ketorolac INJ* 30 MG/ML 1 ML VIAL ONE; Lactated Ringers 1000 ML Bag* 1,000 ML IV SCH; Lidocaine 2% PF * 5 ML VIAL ONE; Midazolam* 1 MG/ML 5 ML VIAL (5 MG) ONE; Naloxone* 0.4 MG/ML 1 ML VIAL IV PRN; Ondansetron INJ* 2 MG/ML VIAL IV PRN; Ondansetron INJ* 2 MG/ML VIAL ONE; Propofol* 10 MG/ML 20 ML BTL ONE; Scopolamine 1.5 mg* PATCH TRANSDERM PRN; fentaNYL* 50 MCG/ML 2 ML VIAL (100 MCG VIAL) IV PRN; fentaNYL* 50 MCG/ML 5 ML VIAL (250 MCG VIAL) ONE; oxyCODONE/Acetamin 5/325 MG* TAB ONE; oxyCODONE/Acetamin 5/325 MG* TAB PO PRN
[2019-01-12 14:49] VITALS: BP 111/89
--- NOTE | 2019-01-12 21:02 | OP ---
CC: [facility] * DATE OF OPERATION: 01/12/19 - [facility] DATE OF : 78 SURGEON: Dr. Gloria More. DESCRIPTION OF PROCEDURE: The patient was brought to the operating room. When general anesthesia was found to be adequate, the patient was prepped and draped in the usual sterile fashion in the dorsal lithotomy position. Time-out was performed. Exam under anesthesia was performed. A weighted speculum was placed in the vagina. The anterior lip of the cervix was grasped with a single- tooth tenaculum and the cervix was dilated with graduated Ekaterina dilators. Initially resistance was met at the level of the internal os, but slowly dilating with the graduated Ekaterina dilators eventually accomplished dilation. The MyoSure was then inserted. The fundus appeared normal. Both tubal ostia appeared normal. There was a small amount of polypoid tissue or possibly it was scar tissue that had been opened on the posterior wall at about the level of the internal os and this was removed with the MyoSure. Curettage was then performed and endometrial curettings were sent to Pathology. The uterus had sounded to 9. The Mirena was inserted without difficulty. The strings were cut to approximately 3 to 4 cm. All instruments were removed from the vagina. Excellent hemostasis was noted, and the patient was was brought to recovery room , awake and in stable condition. [id number]/[id number] #: [id number] MTDD
--- NOTE | 2019-01-12 21:20 | OP ---
CONTINUATION ADDENDUM NOW INCLUDED ON THIS REPORT DATE OF OPERATION: 01/12/19 - [facility] DATE OF : 78 SURGEON: Gloria More MD ANESTHESIOLOGIST: Dr. Chavarria. ANESTHESIA: General endotracheal anesthesia. PRE-OP DIAGNOSES: Menorrhagia, polyp on ultrasound. POST-OP DIAGNOSES: Menorrhagia, polyp on ultrasound. OPERATIVE PROCEDURE: Dilation, hysteroscopy, polypectomy, curettage, and insertion of Mirena IUD. ESTIMATED BLOOD LOSS: Minimal, less than 20 cc. SPECIMEN: Endometrial curettings with polyp. FLUIDS: Per Anesthesia. DEFICIT: I believe is 150 cc. DRAINS: None. FINDINGS: Midline bulky uterus, sounds to 9. There appeared to be stenosis at the level of the internal os and scarring on hysteroscopy. There was a small endometrial polyp on the posterior wall. Both tubal ostia appeared normal. COMPLICATIONS: None. COUNTS: Sponge count correct x2. CONDITION: The patient was brought to the operating room awake and in stable condition. DESCRIPTION OF PROCEDURE: The patient was brought to the operating room. When general anesthesia was found to be adequate, the patient was prepped and draped in the usual sterile fashion in the dorsal lithotomy position. Time-out was performed. Exam under anesthesia was performed. A weighted speculum was placed in the vagina. The anterior lip of the cervix was grasped with a single- tooth tenaculum and the cervix was dilated with graduated Ekaterina dilators. Initially resistance was met at the level of the internal os, but slowly dilating with the graduated Ekaterina dilators eventually accomplished dilation. The MyoSure was then inserted. The fundus appeared normal. Both tubal ostia appeared normal. There was a small amount of polypoid tissue or possibly it was scar tissue that had been opened on the posterior wall at about the level of the internal os and this was removed with the MyoSure. Curettage was then performed and endometrial curettings were sent to Pathology. The uterus had sounded to 9. The Mirena was inserted without difficulty. The strings were cut to approximately 3 to 4 cm. All instruments were removed from the vagina. Excellent hemostasis was noted, and the patient was was brought to recovery room , awake and in stable condition. [id number]/[facility] #: [id number]/[facility] #: [id number] MONY
== END | disposition home or self-care (01) ==
LOC: OR 11:18
PROVIDERS: ATTEND Obstetrics & Gynecology
DX: N92.1 Excessive and frequent menstruation with irregular cycle (principal); F17.211 Nicotine dependence, cigarettes, in remission; N94.6 Dysmenorrhea, unspecified; F41.8 Other specified anxiety disorders; F90.9 Attention-deficit hyperactivity disorder, unspecified type; E78.5 Hyperlipidemia, unspecified
CPT/HCPCS: 88305; A9270-GY; J1100; J1885; J2250; J2405; J2704; J3010; J7300